=== PATIENT | female | born 1980 | race African-American/Black ===

== ENCOUNTER 2016-11-18 00:37 | Emergency (ER) | payer OTHER, MEDICAID ==
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
[2016-11-18] MEDS ORDERED: OXYCODONE-ACETAMINOPHEN 5-325 MG TABLET PO ONE (05:05)
[2016-11-18] MEDS ORDERED: ONDANSETRON 4 MG TAB.RAPDIS PO ONE (05:05)
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
[2016-11-18 06:49] VITALS: BP 106/65
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
== END 2016-11-18 07:01 | disposition home or self-care (01) ==
LOC: ER 00:37
DX: S16.1XXA Strain of muscle, fascia and tendon at neck level, initial encounter (principal); S39.012A Strain of muscle, fascia and tendon of lower back, initial encounter; V49.40XA Driver injured in collision with unspecified motor vehicles in traffic accident, initial encounter; R51 Headache; M54.2 Cervicalgia; F17.200 Nicotine dependence, unspecified, uncomplicated
CPT/HCPCS: 99284; 70450; 71250; 72125; S0119

== ENCOUNTER → 2016-11-20 | Outpatient (CLI) | payer OTHER, MEDICAID | LOC: LAB 17:30 | PROVIDERS: ATTEND Physician Assistant | DX: K13.70 Unspecified lesions of oral mucosa (principal) | CPT/HCPCS: 87250 ==

== ENCOUNTER 2016-12-06 21:46 | Emergency (ER) | payer MEDICAID, OTHER | END 2016-12-07 00:22 | disposition left against medical advice (07) | LOC: ER 21:46 | DX: Z53.21 Procedure and treatment not carried out due to patient leaving prior to being seen by health care provider (principal) ==

== ENCOUNTER 2017-01-08 13:02 | Emergency (ER) | payer MEDICAID ==
[2017-01-08 13:08] VITALS: BP 133/80
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
[2017-01-08] MEDS ORDERED: PHENAZOPYRIDINE HCL 200 MG TABLET PO ONE (14:51)
[2017-01-08 15:01] LABS: ABSOLUTE BASOPHILS # (AUTO) 0.1 10^3/uL (0.0-0.2); ABSOLUTE EOSINOPHILS # (AUTO) 0.3 10^3/uL (0.0-0.6); ABSOLUTE LYMPHOCYTES (AUTO) 3.4 10^3/uL (0.5-4.7); ABSOLUTE MONOCYTES (AUTO) 0.5 10^3/uL (0.1-1.4); ABSOLUTE NEUT (AUTO) 3.8 10^3/uL (1.7-8.2); BASOPHILS % (AUTO) 1.1 % (0-2); EOSINOPHILS % (AUTO) 3.4 % (0-6); HEMATOCRIT 39.9 % (36.0-47.0); HEMOGLOBIN 13.4 g/dL (12.0-15.5); HGB HCT DIFFERENCE 0.3; LYMPHOCYTES % (AUTO) 41.8 % (13-45); MEAN CORPUSCULAR HEMOGLOBIN 28.6 pg (27.0-33.4); MEAN CORPUSCULAR HGB CONC 33.5 g/dL (32.0-36.0); MEAN CORPUSCULAR VOLUME 85 fl (80-97); MONOCYTES % (AUTO) 6.1 % (3-13); RED BLOOD COUNT 4.67 10^6/uL (3.72-5.28); RED CELL DISTRIBUTION WIDTH 14.3 % (11.5-14.0); SEGMENTED NEUTROPHILS % (AUTO) 47.6 % (42-78); WHITE BLOOD COUNT 8.1 10^3/uL (4.0-10.5)
[2017-01-08 15:02] LABS: APPEARANCE,URINE SLIGHTLY-CLOUDY; BILIRUBIN,URINE NEGATIVE (NEGATIVE); GLUCOSE, URINE NEGATIVE (NEGATIVE); KETONES,URINE NEGATIVE (NEGATIVE); URINE SPECIFIC GRAVITY 1.033
[2017-01-08 15:03] LABS: LEUKOCYTE ESTERASE,URINE MODERATE (NEGATIVE); NITRITE,URINE NEGATIVE (NEGATIVE); PROTEIN,URINE NEGATIVE (NEGATIVE)
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
[2017-01-08 15:15] LABS: ALANINE AMINOTRANSFERASE 27 U/L (9-52); ALKALINE PHOSPHATASE 108 U/L (38-126); ANION GAP 11 (5-19); ASPARTATE AMINO TRANSFERASE 20 U/L (14-36); BILIRUBIN,DIRECT 0.3 mg/dL (0.0-0.4); BILIRUBIN,TOTAL 0.4 mg/dL (0.2-1.3); BLOOD UREA NITROGEN 11 mg/dL (7-20); CALCIUM 9.4 mg/dL (8.4-10.2); CARBON DIOXIDE 26 mmol/L (22-30); CHLORIDE 102 mmol/L (98-107); CREATININE RESULT 0.78 mg/dL (0.52-1.25); GLUCOSE 98 mg/dL (75-110); POTASSIUM 4.2 mmol/L (3.6-5.0); SODIUM 139.1 mmol/L (137-145); TOTAL PROTEIN 7.5 g/dL (6.3-8.2)
[2017-01-08] MEDS ORDERED: MINERAL OIL 30 ML UDCUP PR ONE (15:25)
[2017-01-08 16:28] LABS: CHLAM PCR NOT DETECTED (NOT DETECT)
[2017-01-08] MEDS ORDERED: CEPHALEXIN 500 MG CAPSULE PO ONE (16:52)
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
== END 2017-01-08 17:10 | disposition home or self-care (01) ==
LOC: ER 13:02
DX: K59.09 Other constipation (principal); N39.0 Urinary tract infection, site not specified; R10.9 Unspecified abdominal pain; F17.200 Nicotine dependence, unspecified, uncomplicated; Z98.51 Tubal ligation status
CPT/HCPCS: 99283; 36415; 84703; 85025; 80053; 81001; 87491; 87591; 74022; J3490 ×2

== ENCOUNTER 2017-02-08 23:42 | Emergency (ER) | payer MEDICAID ==
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
--- NOTE | 2017-02-09 01:09 | ER Document Report ---
Doctor's Note Notes: 02/09/17 01:09 Patient presents after apparently being found unresponsive in a [employer]. She was administered 2 mg of intranasal naloxone with resolution of her unresponsive presentation. She arrives combative and aggressive with [employer]. She immediately refuses any care from this provider. States that she does not want any medical care, does not want to be assessed, refuses a medical screening exam. I did attempt to engage the patient in a conversation regarding her apparent narcotic overdose and the risks for that narcotic to remain on board long after Narcan has gone away. Patient did not wish to engage in this conversation only stating repeatedly "that is fine I do not want to be here I am going to leave and call my trial lawyer". Although socially inappropriate and combative patient does have capacity. I have no grounds to hold her involuntarily. She will leave AGAINST MEDICAL ADVICE
== END 2017-02-09 | disposition left against medical advice (07) ==
LOC: ER 23:42
DX: T40.604A Poisoning by unspecified narcotics, undetermined, initial encounter (principal); R40.4 Transient alteration of awareness; X58.XXXA Exposure to other specified factors, initial encounter; Y92.512 Supermarket, store or market as the place of occurrence of the external cause; Z98.51 Tubal ligation status
CPT/HCPCS: 99285

== ENCOUNTER 2017-02-09 00:21 | Emergency (ER) | payer MEDICAID ==
[2017-02-09] MEDS ORDERED: HALOPERIDOL LACTATE INJ 5 MG/1 ML VIAL IV ONE (00:37)
[2017-02-09] MEDS ORDERED: NORMAL SALINE 1000 ML 1,000 ML IV ONE (00:37)
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
[2017-02-09] MEDS ORDERED: LORAZEPAM INJ 2 MG/1 ML VIAL IV ONE (01:06)
[2017-02-09] MEDS ORDERED: VERAPAMIL HCL INJ/PF 5 MG/2 ML SDV IV ONE (01:11)
[2017-02-09 01:40] LABS: HEMATOCRIT 38.5 % (36.0-47.0); HEMOGLOBIN 12.7 g/dL (12.0-15.5); HGB HCT DIFFERENCE -0.4; MEAN CORPUSCULAR HEMOGLOBIN 28.6 pg (27.0-33.4); MEAN CORPUSCULAR HGB CONC 32.9 g/dL (32.0-36.0); MEAN CORPUSCULAR VOLUME 87 fl (80-97); RED BLOOD COUNT 4.44 10^6/uL (3.72-5.28); RED CELL DISTRIBUTION WIDTH 15.7 % (11.5-14.0); WHITE BLOOD COUNT 6.9 10^3/uL (4.0-10.5)
[2017-02-09 01:50] LABS: ALANINE AMINOTRANSFERASE 32 U/L (9-52); ALBUMIN 3.6 g/dL (3.5-5.0); ALCOHOL 86 mg/dL (NONE DETECTED); ALKALINE PHOSPHATASE 109 U/L (38-126); ANION GAP 14 (5-19); ASPARTATE AMINO TRANSFERASE 18 U/L (14-36); BILIRUBIN,DIRECT 0.4 mg/dL (0.0-0.4); BILIRUBIN,TOTAL 0.5 mg/dL (0.2-1.3); BLOOD UREA NITROGEN 10 mg/dL (7-20); CARBON DIOXIDE 20 mmol/L (22-30); CHLORIDE 112 mmol/L (98-107); CREATININE RESULT 0.67 mg/dL (0.52-1.25); GLUCOSE 86 mg/dL (75-110); POTASSIUM 3.6 mmol/L (3.6-5.0); SODIUM 145.5 mmol/L (137-145); TOTAL PROTEIN 6.7 g/dL (6.3-8.2)
[2017-02-09 02:00] LABS: APPEARANCE,URINE CLEAR; BILIRUBIN,URINE NEGATIVE (NEGATIVE); GLUCOSE, URINE NEGATIVE (NEGATIVE); KETONES,URINE NEGATIVE (NEGATIVE); LEUKOCYTE ESTERASE,URINE NEGATIVE (NEGATIVE); NITRITE,URINE NEGATIVE (NEGATIVE); PROTEIN,URINE NEGATIVE (NEGATIVE); URINE SPECIFIC GRAVITY 1.001; UROBILINOGEN,URINE NEGATIVE mg/dL (<2.0)
[2017-02-09 02:01] LABS: BASOPHILS % (MANUAL) 0 % (0-2); EOSINOPHILS % (MANUAL) 3 % (0-6); LYMPHOCYTES % (MANUAL) 53 % (13-45); TOTAL CELLS COUNTED 100
[2017-02-09 02:07] LABS: ANISOCYTOSIS SLIGHT; POIKILOCYTOSIS SLIGHT
[2017-02-09 02:08] LABS: BURR CELLS SLIGHT; OVALOCYTES 1+; TARGET CELLS SLIGHT
[2017-02-09 02:56] LABS: URINE BARBITURATES SCREEN NEGATIVE; URINE METHADONE SCREEN NEGATIVE; URINE OPIATES LOW NEGATIVE; URINE PHENCYCLIDINE SCREEN NEGATIVE
--- NOTE | 2017-02-09 04:14 | RADIOLOGY REPORT (SQ) ---
EXAM DESCRIPTION: CT HEAD WITHOUT COMPLETED DATE/TIME: 02/09/2017 3:36 am REASON FOR STUDY: ams COMPARISON: 11/18/2016. TECHNIQUE: Axial images acquired through the brain without intravenous contrast. Images reviewed wi th bone, brain and subdural windows. Images stored on PACS. All CT scanners at this facility use dose modulation, iterative reconstruction, and/or weight based d osing when appropriate to reduce radiation dose to as low as reasonably achievable (ALARA). [facility]: Dose Right [facility]: CareDose [facility]: Dose Right [facility]: Teradose 4D [facility]: [email or web address] RADIATION DOSE: Up-to-date CT equipment and radiation dose reduction techniques were employed. CTDIv ol: 55.2 - 55.3 mGy. DLP: 2080 mGy-cm. mGy. LIMITATIONS: None. FINDINGS: VENTRICLES: Normal size and contour. CEREBRUM: No masses. No hemorrhage. No midline shift. Normal ocampo/white matter differentiation. N o evidence for acute infarction. CEREBELLUM: No masses. No hemorrhage. No alteration of density. No evidence for acute infarction. EXTRAAXIAL SPACES: No fluid collections. No masses. ORBITS AND GLOBE: No intra- or extraconal masses. Normal contour of globe without masses. CALVARIUM: No fracture. PARANASAL SINUSES: No fluid or mucosal thickening. SOFT TISSUES: No mass or hematoma. OTHER: No other significant finding. IMPRESSION: NORMAL BRAIN CT WITHOUT CONTRAST. TECHNICAL DOCUMENTATION: JOB ID: [id number] Quality ID # [id number]: Final reports with documentation of one or more dose reduction techniques (e.g., Au tomated exposure control, adjustment of the mA and/or kV according to patient size, use of iterative reconstruction technique) 2010 [employer]- All Rights Reserved
--- NOTE | 2017-02-09 06:27 | ER Document Report ---
Doctor's Note Notes: 02/09/17 06:26 Patient is now awake and alert. I did try to stand and walk the patient. She is unfortunately unable to walk very well on her own. She still staggering and looks as if she will follow-up frequent her walk on her own. Informed patient that I suggest that she lays down and waits a little bit longer until she is able walk on her own or until she can get a ride home. Patient agrees and did plate the back down on the bed. Patient will be reassessed later on. Dictation of this chart was performed using voice recognition software; therefore, there may be some unintended grammatical errors.
[2017-02-09 08:06] VITALS: BP 124/71
--- NOTE | 2017-02-09 08:18 | ER Document Report ---
ED General - General Chief Complaint: Overdose Stated Complaint: POSSIBLE OVERDOSE Time Seen by Provider: 02/09/17 00:36 TRAVEL OUTSIDE OF THE [place] IN LAST 30 DAYS: No - Related Data Allergies/Adverse Reactions: No Known Allergies Allergy (Verified 02/09/17 00:46) Past Medical History - Social History Smoking Status: Unknown if Ever Smoked Family History: Reviewed & Not Pertinent Pulmonary Medical History: Reports: Hx Bronchitis Renal/ Medical History: Denies: Hx Peritoneal Dialysis Musculoskeltal Medical History: Reports Hx Musculoskeletal Trauma Psychiatric Medical History: Reports: Hx Anxiety, Hx Depression Past Surgical History: Reports: Hx Bowel Surgery, Hx Dilation and Curettage, Hx Gynecologic Surgery - ectopic L tube, Hx Tubal Ligation - Immunizations Immunizations up to date: No Hx Diphtheria, Pertussis, Tetanus Vaccination: Yes Hx Pneumococcal Vaccination: 06/21/12 Physical Exam - Vital signs Vitals: Pulse Ox 95 02/09/17 00:27 Course - Re-evaluation Re-evalutation: 02/09/17 08:17 Patient reevaluated at 8:15 AM. Alert and oriented 3, is amnestic to last night but she received a heavy dose of sedatives. Currently her neurologic exam is normal, she has no psychiatric emergency and is stable for discharge home. - Vital Signs Vital signs: Temp Pulse Resp BP Pulse Ox 99.6 F 17 124/71 97 02/09/17 06:01 02/09/17 08:01 02/09/17 08:01 02/09/17 08:01 - Laboratory Result Diagrams: 02/09/17 01:29 02/09/17 01:29 Laboratory results interpreted by me: 02/09/17 02/09/17 02/09/17 01:10 01:29 01:29 RDW 15.7 H Seg Neuts % (Manual) 40 L Lymphocytes % (Manual) 53 H Sodium 145.5 H Chloride 112 H Carbon Dioxide 20 L Urine Blood SMALL H Salicylates < 1.0 L Acetaminophen < 10 L Discharge - Discharge Clinical Impression: Alcohol abuse, Agitation Altered mental status Qualifiers: Altered mental status type: disorientation Qualified Code(s): R41.0 - Disorientation, unspecified Condition: Stable Additional Instructions: You were seen today for being confused, agitated and being found unresponsive in a [employer]. You were given a drug to reverse narcotics and became more responsive. Initially in the emergency department you did refuse care but were unable to care for yourself when trying to leave the hospital, falling in the parking lot. Unfortunately, you were unable to make appropriate decisions for yourself at that time. Your labs, CT of the head, and EKG are all normal. Your alcohol level was above the legal level for intoxication. Please follow- up with your primary care doctor regarding today's episode. Seek help for substance abuse if you think this is an issue for you.
--- NOTE | 2017-02-09 09:28 | EKG REPORT ---
SEVERITY:- NORMAL ECG - SINUS RHYTHM : Confirmed by: Sharmaine Mcneil 09-Feb-2017 09:27:27
== END 2017-02-09 08:59 | disposition home or self-care (01) ==
LOC: ER 00:21
DX: F10.10 Alcohol abuse, uncomplicated (principal); R45.1 Restlessness and agitation; R41.0 Disorientation, unspecified
CPT/HCPCS: 93005; 99291; 96361; 51702; 96374; 96375; 36415; 80307 ×4; 84703; 85025; 80053; 81001; 70450; 93010; J1630; J2060; J7030

== ENCOUNTER 2017-03-17 10:59 | Emergency (ER) | payer MEDICAID, OTHER ==
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
[2017-03-17 12:06] VITALS: BP 129/90
== END 2017-03-17 12:30 | disposition left against medical advice (07) ==
LOC: ER 10:59
DX: S16.1XXA Strain of muscle, fascia and tendon at neck level, initial encounter (principal); V43.52XA Car driver injured in collision with other type car in traffic accident, initial encounter; M54.2 Cervicalgia; R00.0 Tachycardia, unspecified; J45.909 Unspecified asthma, uncomplicated; F17.200 Nicotine dependence, unspecified, uncomplicated; Z53.29 Procedure and treatment not carried out because of patient's decision for other reasons
CPT/HCPCS: 70450; 71010; 72125; 99284

== ENCOUNTER 2017-03-18 05:35 | Emergency (ER) | payer MEDICAID, OTHER ==
[2017-03-18] MEDS ORDERED: KETOROLAC TROMETHAMINE 10 MG TABLET PO ONE (06:21)
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
[2017-03-18 07:48] VITALS: BP 104/83
== END 2017-03-18 08:15 | disposition home or self-care (01) ==
LOC: ER 05:35
DX: S16.1XXD Strain of muscle, fascia and tendon at neck level, subsequent encounter (principal); T50.991A Poisoning by other drugs, medicaments and biological substances, accidental (unintentional), initial encounter; J18.9 Pneumonia, unspecified organism; M79.1 Myalgia; F17.210 Nicotine dependence, cigarettes, uncomplicated; V89.2XXD Person injured in unspecified motor-vehicle accident, traffic, subsequent encounter
CPT/HCPCS: 99283; 71020; J3490

== ENCOUNTER 2017-04-12 11:47 | Emergency (ER) | payer MEDICAID ==
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
--- NOTE | 2017-04-12 14:54 | RADIOLOGY REPORT (SQ) ---
EXAM DESCRIPTION: U/S THYROID/SFT TISS HD NECK COMPLETED DATE/TIME: 04/12/2017 2:08 pm REASON FOR STUDY: tender nodule L supraclavicular area COMPARISON: CT cervical spine 03/17/2017, 11/18/2016 TECHNIQUE: Dynamic and static ocampo-scale images acquired of the left supraclavicular region. Selecte d additional color/power Doppler images recorded. All images stored to PACS. LIMITATIONS: None. FINDINGS: Patient indicates palpable abnormality over the left supraclavicular region. In the area indicated by the patient, there are 3 small supraclavicular lymph nodes, 8 x 6 mm, 8 x 4 mm, and 7 x 4 mm in size. These are similar compared to CT cervical spine 11/18/2016. IMPRESSION: Small left supraclavicular lymph nodes TECHNICAL DOCUMENTATION: JOB ID: [id number] [employer]- All Rights Reserved
[2017-04-12 15:12] VITALS: BP 118/74
== END 2017-04-12 15:12 | disposition home or self-care (01) ==
LOC: ER 11:47
DX: R59.1 Generalized enlarged lymph nodes (principal); J02.9 Acute pharyngitis, unspecified; R50.9 Fever, unspecified; F17.200 Nicotine dependence, unspecified, uncomplicated; Z98.51 Tubal ligation status
CPT/HCPCS: 76536; 87070; 87880; 99284

== ENCOUNTER → 2017-07-13 | Day surgery (SDC) | payer MEDICAID ==
[~2017-07-13] MED LIST: FENTANYL CITRATE INJ/PF 100 MCG/2 ML AMPUL ONE; MIDAZOLAM 2 MG/2 ML INJ ONE
--- NOTE | 2017-07-13 16:31 | RADIOLOGY REPORT (SQ) ---
EXAM DESCRIPTION: U/S BIOPSY SUPERFIC LYMPH NODE IV conscious sedation COMPLETED DATE/TIME: 07/13/2017 2:25 pm REASON FOR STUDY: ENLARGED LYMPH NODES, UNSPECIFIED (R59.9) R59.9 ENLARGED LYMPH NODES, UNSPECIFIED COMPARISON: CT cervical spine without contrast 12/26/2014, 11/18/2016, 03/17/2017 CT chest 11/18/2016 Neck soft tissue ultrasound 04/12/2017 TECHNIQUE: Dynamic and static grayscale images acquired of the localized site of clinical concern an d recorded on PACS. Additional selected color Doppler and spectral images recorded. SITE OF CONCERN: Left supraclavicular region palpable node LIMITATIONS: None. FINDINGS: Ultrasound-guided left supraclavicular lymph node biopsy was discussed with the patient an paramjit she agreed to proceed. At my direction, under continuous physiologic monitoring by radiology nursing personnel, patient rece ived 1.5 mg of IV Versed at and 50 mcg of IV fentanyl for conscious sedation. No complications post sedation. Total sedation time 15 minutes. Total patient observation time 25 minutes. After sterile skin prep with ChloraPrep and local anesthesia with 3 mL of 1% lidocaine, a coaxial 14/ 15 gauge needle was used to obtain 3 cores of tissue from the left supraclavicular 9 x 5 mm lymph nod e. Specimens were received by Sanjana from cytology. Under sonographic guidance, a ribbon clip was placed within the biopsied 9 x 5 mm left supraclavicula r lymph node. There were no immediate complications post biopsy. Pathology is pending at the time of dictation. IMPRESSION: Ultrasound-guided left supraclavicular lymph node biopsy as above. Pathology pending. IV conscious sedation. No complications from sedation. TECHNICAL DOCUMENTATION: JOB ID: [id number] [email or web address]- All Rights Reserved
== END ==
LOC: RAD 12:33
PROVIDERS: ATTEND Internal Medicine Medical Oncology
PROC: 07B23ZX Excision of Left Neck Lymphatic, Percutaneous Approach, Diagnostic (ICD-10-PCS; principal; 2017-07-13)
DX: R59.9 Enlarged lymph nodes, unspecified (principal)
CPT/HCPCS: 88185 ×15; 88184; 88233; 88262; 38505; J2250; J3010; 88305

== ENCOUNTER 2017-08-16 03:05 | Emergency (ER) | payer MEDICAID ==
[2017-08-16] MEDS ORDERED: NORMAL SALINE 1000 ML 1,000 ML IV ONE (03:51)
[2017-08-16] MEDS ORDERED: METOCLOPRAMIDE HCL INJ/PF 10 MG/2 ML SDV IV ONE (03:51)
[2017-08-16] MEDS ORDERED: DIPHENHYDRAMINE HCL 50 MG/ML VIAL IV ONE ×2 (03:51→04:23)
[2017-08-16] MEDS ORDERED: KETOROLAC TROMETHAMINE INJ/PF 30 MG/1 ML SDV IV ONE (03:51)
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
[2017-08-16] MEDS ORDERED: METOCLOPRAMIDE HCL 10 MG TABLET PO ONE (04:23)
[2017-08-16] MEDS ORDERED: HYDROMORPHONE HCL INJ/PF 2 MG/ML AMPULE IM ONE (04:23)
[2017-08-16] MEDS ORDERED: DIPHENHYDRAMINE HCL 50 MG/ML VIAL IM ONE (04:27)
[2017-08-16] MEDS ORDERED: PROMETHAZINE HCL INJ 25 MG/1 ML VIAL IM ONE (05:41)
[2017-08-16] MEDS ORDERED: DEXAMETHASONE SOD PHOS INJ 10 MG/1 ML VIAL IM ONE (05:42)
[2017-08-16] MEDS ORDERED: TETRACAINE HCL 0.5% OPH SOLN 2 ML OD ONE (05:43)
[2017-08-16] MEDS ORDERED: TETRACAINE HCL 0.5% OPH SOLN 2 ML ONE (05:46)
[2017-08-16 06:23] VITALS: BP 132/82
== END 2017-08-16 06:22 | disposition home or self-care (01) ==
LOC: ER 03:05
DX: H53.8 Other visual disturbances (principal); R51 Headache; R11.0 Nausea; F41.9 Anxiety disorder, unspecified; Z79.891 Long term (current) use of opiate analgesic; Z79.899 Other long term (current) drug therapy; F17.200 Nicotine dependence, unspecified, uncomplicated; J45.909 Unspecified asthma, uncomplicated
CPT/HCPCS: 99283; 96372; J1200; J3490 ×2; J1170; J2550; J1100

== ENCOUNTER 2017-10-28 20:20 | Emergency (ER) | payer MEDICAID, OTHER ==
[2017-10-28] MEDS ORDERED: ACETAMINOPHEN 325 MG TABLET PO ONE (20:24)
[2017-10-28 20:26] VITALS: BP 120/67
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
--- NOTE | 2017-10-28 21:46 | RADIOLOGY REPORT (SQ) ---
EXAM DESCRIPTION: ANKLE RIGHT COMPLETE COMPLETED DATE/TIME: 10/28/2017 9:22 pm REASON FOR STUDY: Pain s/p injury COMPARISON: None. NUMBER OF VIEWS: Three views. TECHNIQUE: AP, lateral, and oblique radiographic images acquired of the right ankle. LIMITATIONS: None. FINDINGS: MINERALIZATION: Normal. BONES: No acute fracture or dislocation. No worrisome bone lesions. JOINTS: No effusions. SOFT TISSUES: No soft tissue swelling. No foreign body. OTHER: No other significant finding. IMPRESSION: NEGATIVE STUDY OF THE RIGHT ANKLE. NO RADIOGRAPHIC EVIDENCE OF ACUTE INJURY. TECHNICAL DOCUMENTATION: JOB ID: [id number] [employer]- All Rights Reserved Reading location - IP/workstation name: [email or web address]
--- NOTE | 2017-10-28 21:47 | RADIOLOGY REPORT (SQ) ---
EXAM DESCRIPTION: FOOT RIGHT COMPLETE COMPLETED DATE/TIME: 10/28/2017 9:22 pm REASON FOR STUDY: Pain s/p injury COMPARISON: None. NUMBER OF VIEWS: Three views. TECHNIQUE: AP, lateral and oblique radiographic images acquired of the right foot. LIMITATIONS: None. FINDINGS: MINERALIZATION: Normal. BONES: No acute fracture or dislocation. No worrisome bone lesions. JOINTS: No effusions. SOFT TISSUES: No soft tissue swelling. No foreign body. OTHER: No other significant finding. IMPRESSION: NEGATIVE STUDY OF THE RIGHT FOOT. NO RADIOGRAPHIC EVIDENCE OF ACUTE INJURY. TECHNICAL DOCUMENTATION: JOB ID: [id number] [employer]- All Rights Reserved Reading location - IP/workstation name: [email or web address]
== END 2017-10-28 22:23 | disposition home or self-care (01) ==
LOC: ER 20:20
DX: S93.401A Sprain of unspecified ligament of right ankle, initial encounter (principal); S93.601A Unspecified sprain of right foot, initial encounter; W20.8XXA Other cause of strike by thrown, projected or falling object, initial encounter; Y92.512 Supermarket, store or market as the place of occurrence of the external cause
CPT/HCPCS: 99283; 73610; 73630; J3490

== ENCOUNTER 2018-03-04 16:58 | Emergency (ER) | payer MEDICAID ==
[2018-03-04 17:09] VITALS: BP 114/72
[2018-03-04] MEDS ORDERED: LIDOCAINE 5% (700 MG) TRANSDERMAL ADH..PATCH TP ONE (18:17)
[2018-03-04] MEDS ORDERED: KETOROLAC TROMETHAMINE 60 MG/2 ML SDV IM ONE (18:17)
[2018-03-04] MEDS ORDERED: GABAPENTIN 300 MG CAPSULE PO ONE (18:17)
[2018-03-04] MEDS ORDERED: DEXAMETHASONE SOD PHOS INJ 10 MG/1 ML VIAL IM ONE (18:17)
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
== END 2018-03-04 19:09 | disposition home or self-care (01) ==
LOC: ER 16:58
DX: G89.29 Other chronic pain (principal); M54.89 Other dorsalgia; M54.5 Low back pain; Z65.5 Exposure to disaster, war and other hostilities; J45.909 Unspecified asthma, uncomplicated
CPT/HCPCS: 96372; 99283

== ENCOUNTER 2018-04-04 12:30 | Emergency (ER) | payer MEDICAID ==
[2018-04-04] MEDS ORDERED: METHYLPREDNISOLONE INJ 125 MG/2 ML SDV IM ONE (12:55)
[2018-04-04] MEDS ORDERED: IPRATROPIUM/ALBUTEROL 0.5-2.5 MG/3 ML AMPUL NEB ONE ×2 (12:55→13:56)
--- NOTE | 2018-04-04 12:58 | ER Document Report ---
ED General - General Chief Complaint: Cold Symptoms Stated Complaint: COUGH Time Seen by Provider: 04/04/18 12:45 Mode of Arrival: Ambulatory Information source: Patient Notes: 37-year-old female presents emergency department with a 4-week history of productive cough. Patient states that she has a history of chronic bronchitis. Patient states that she is followed up with her primary care physician twice. Patient states that she was prescribed a Z-Herson and an inhaler. Patient states that she went back to the doctor a few weeks later and was prescribed levofloxacin, Tessalon Perles, nebulizer treatments. Patient states that she is not feeling any better. Patient states that her entire household has similar symptoms. Patient is having associated rhinorrhea with a productive cough. Patient does smoke. She denies chest pain, shortness of breath. I have greeted and performed a rapid initial assessment of this patient. A comprehensive ED assessment and evaluation of the patient, analysis of test results and completion of the medical decision making process will be conducted by additional ED providers. PHYSICAL EXAMINATION: GENERAL: Well-appearing, well-nourished and in no acute distress. HEAD: Atraumatic, normocephalic. EYES: Pupils equal round extraocular movements intact, conjunctiva are normal. ENT: Nares patent NECK: Normal range of motion LUNGS: No respiratory distress. mild wheezing. Musculoskeletal: Normal range of motion NEUROLOGICAL: Normal speech, normal gait. PSYCH: Normal mood, normal affect. SKIN: Warm, Dry, normal turgor, no rashes or lesions noted. TRAVEL OUTSIDE OF THE [place] IN LAST 30 DAYS: No - HPI Onset: Other - 4 weeks Onset/Duration: Gradual Quality of pain: No pain Associated symptoms: None Exacerbated by: Denies Relieved by: Denies Similar symptoms previously: Yes Recently seen / treated by doctor: Yes - Related Data Allergies/Adverse Reactions: No Known Allergies Allergy (Verified 04/04/18 12:33) Past Medical History - Social History Smoking Status: Current Every Day Smoker Chew tobacco use (# tins/day): No Frequency of alcohol use: None Drug Abuse: None Family History: Reviewed & Not Pertinent Patient has suicidal ideation: No Patient has homicidal ideation: No Pulmonary Medical History: Reports: Hx Asthma, Hx Bronchitis Renal/ Medical History: Denies: Hx Peritoneal Dialysis Musculoskeletal Medical History: Reports Hx Musculoskeletal Trauma Psychiatric Medical History: Reports: Hx Anxiety, Hx Depression Past Surgical History: Reports: Hx Bowel Surgery, Hx Dilation and Curettage, Hx Gynecologic Surgery - ectopic L tube, Hx Tubal Ligation - Immunizations Immunizations up to date: No Hx Diphtheria, Pertussis, Tetanus Vaccination: Yes Hx Pneumococcal Vaccination: 06/21/12 Review of Systems - Review of Systems Constitutional: No symptoms reported EENT: Nose congestion, Nose discharge Cardiovascular: No symptoms reported Respiratory: Cough, Wheezing Gastrointestinal: No symptoms reported Genitourinary: No symptoms reported Female Genitourinary: No symptoms reported Musculoskeletal: No symptoms reported Skin: No symptoms reported Hematologic/Lymphatic: No symptoms reported Neurological/Psychological: No symptoms reported -: Yes All other systems reviewed and negative Physical Exam - Vital signs Vitals: Temp Pulse Resp BP Pulse Ox 98.5 F 85 18 123/74 99 04/04/18 12:38 04/04/18 12:38 04/04/18 12:38 04/04/18 12:38 04/04/18 12:38 Course - Vital Signs Vital signs: Temp Pulse Resp BP Pulse Ox 98.5 F 85 18 123/74 99 04/04/18 12:38 04/04/18 12:38 04/04/18 12:38 04/04/18 12:38 04/04/18 12:38
--- NOTE | 2018-04-04 13:36 | RADIOLOGY REPORT (SQ) ---
EXAM DESCRIPTION: CHEST 2 VIEWS COMPLETED DATE/TIME: 04/04/2018 1:25 pm REASON FOR STUDY: cough COMPARISON: 03/18/2017 EXAM PARAMETERS: NUMBER OF VIEWS: two views TECHNIQUE: Digital Frontal and Lateral radiographic views of the chest acquired. RADIATION DOSE: NA LIMITATIONS: none FINDINGS: LUNGS AND PLEURA: No opacities, masses or pneumothorax. No pleural effusion. MEDIASTINUM AND HILAR STRUCTURES: No masses or contour abnormalities. HEART AND VASCULAR STRUCTURES: Heart normal size. No evidence for failure. BONES: No acute findings. HARDWARE: None in the chest. OTHER: No other significant finding. IMPRESSION: NO ACUTE RADIOGRAPHIC FINDING IN THE CHEST. TECHNICAL DOCUMENTATION: JOB ID: [id number] [employer]- All Rights Reserved Reading location - IP/workstation name: [email or web address]
[2018-04-04 13:54] LABS: A TYPE INFLUENZA AG NEGATIVE (NEGATIVE); B INFLUENZA AG NEGATIVE (NEGATIVE)
--- NOTE | 2018-04-04 15:15 | ER Document Report ---
ED General - General Chief Complaint: Cold Symptoms Stated Complaint: COUGH Time Seen by Provider: 04/04/18 12:45 Mode of Arrival: Ambulatory Information source: Patient Notes: This is a 37-year-old female with COPD who still smokes presents to the emergency room with cough, shortness of breath, wheezing. TRAVEL OUTSIDE OF THE [place] IN LAST 30 DAYS: No - HPI Onset: Last week Onset/Duration: Gradual Quality of pain: Dull Severity: Moderate Pain Level: 2 Associated symptoms: Shortness of breath. denies: Chest pain, Fever Exacerbated by: Walking, Coughing Relieved by: Denies Similar symptoms previously: Yes Recently seen / treated by doctor: Yes - Related Data Allergies/Adverse Reactions: No Known Allergies Allergy (Verified 04/04/18 12:33) Past Medical History - General Information source: Patient - Social History Smoking Status: Current Every Day Smoker Cigarette use (# per day): Yes - 1 pack/day Chew tobacco use (# tins/day): No Frequency of alcohol use: None Drug Abuse: None Lives with: Family Family History: Reviewed & Not Pertinent Patient has suicidal ideation: No Patient has homicidal ideation: No Pulmonary Medical History: Reports: Hx Asthma, Hx Bronchitis Renal/ Medical History: Denies: Hx Peritoneal Dialysis Musculoskeletal Medical History: Reports Hx Musculoskeletal Trauma Psychiatric Medical History: Reports: Hx Anxiety, Hx Depression Past Surgical History: Reports: Hx Bowel Surgery, Hx Dilation and Curettage, Hx Gynecologic Surgery - ectopic L tube, Hx Tubal Ligation - Immunizations Immunizations up to date: No Hx Diphtheria, Pertussis, Tetanus Vaccination: Yes Hx Pneumococcal Vaccination: 06/21/12 Review of Systems - Review of Systems Constitutional: denies: Chills, Fever EENT: No symptoms reported Cardiovascular: No symptoms reported Respiratory: See HPI, Cough, Short of breath, Wheezing Gastrointestinal: No symptoms reported Genitourinary: No symptoms reported Female Genitourinary: No symptoms reported Musculoskeletal: No symptoms reported Skin: No symptoms reported Hematologic/Lymphatic: No symptoms reported Neurological/Psychological: No symptoms reported Physical Exam - Vital signs Vitals: Temp Pulse Resp BP Pulse Ox 98.5 F 85 18 123/74 99 04/04/18 12:38 04/04/18 12:38 04/04/18 12:38 04/04/18 12:38 04/04/18 12:38 Notes: Physical exam: GENERAL: Patient is alert and oriented x3, wheezing and coughing on exam HEAD: Atraumatic, normocephalic. EYES: Pupils equal round and reactive to light, extraocular movements intact, sclera anicteric, conjunctiva are normal. ENT: TMs normal, nares patent, oropharynx clear without exudates. Moist mucous membranes. NECK: Normal range of motion, supple without obvious mass or JVD. LUNGS: Wheezing bilaterally HEART: Regular rate and rhythm without murmurs, rubs or gallops. ABDOMEN: Soft, normoactive bowel sounds. No tenderness to palpation. No guarding, no rebound. No masses appreciated. EXTREMITIES: Normal range of motion, no pitting or edema. No clubbing or cyanosis. NEUROLOGICAL: Cranial nerves II through XII grossly intact. Normal speech, moving all extremities. PSYCH: Normal mood, normal affect. SKIN: Warm, Dry, normal turgor, no rashes or lesions noted. Course - Re-evaluation Re-evalutation: 04/04/18 20:25 Patient was breathing better with less wheezing on exam. I did discuss with her about stopping smoking as well as vaping. I have advised her to follow-up with her doctor. 04/04/18 20:25 - Vital Signs Vital signs: Temp Pulse Resp BP Pulse Ox 98.6 F 85 18 113/91 H 100 04/04/18 15:35 04/04/18 15:35 04/04/18 12:38 04/04/18 15:35 04/04/18 15:35 - Diagnostic Test Radiology reviewed: Image reviewed, Reports reviewed - X-ray shows no pneumonia Discharge - Discharge Clinical Impression: COPD exacerbation Condition: Stable Disposition: HOME, SELF-CARE Additional Instructions: Chest x-ray showed no evidence of pneumonia. The flu studies were negative. Recommendations: As we discussed, I want you to take the Z-Herson. Stop the levofloxacin. Take the prednisone as prescribed. Take Rainier as needed. Add Robitussin [id number] cough syrup. I would attempt to stop all smoking (cigarettes as well as vapor). Follow-up with your primary care doctor. Return to the emergency room for worsening shortness of breath, cough or any concerns or getting worse. Prescriptions: Hydrocodone/Acetaminophen [Rainier 5-325 mg Tablet] 1 tab PO Q6HP PRN #14 tablet PRN Reason: Azithromycin [Zithromax 250 mg Tablet] 250 mg PO ASDIR PRN #6 tablet PRN Reason: Prednisone [Deltasone 20 mg Tablet] 3 tab PO DAILY 5 Days tablet
[2018-04-04 15:37] VITALS: BP 113/91
== END 2018-04-04 15:41 | disposition home or self-care (01) ==
LOC: ER 12:30
DX: J44.1 Chronic obstructive pulmonary disease with (acute) exacerbation (principal); F17.210 Nicotine dependence, cigarettes, uncomplicated; Z98.51 Tubal ligation status
CPT/HCPCS: 94640 ×2; 99283; 96372; 87804; 71046; J2930; J7620

== ENCOUNTER 2018-08-29 13:14 | Emergency (ER) | payer MEDICAID ==
[2018-08-29] MEDS ORDERED: KETOROLAC TROMETHAMINE 60 MG/2 ML SDV IM ONE (14:25)
[2018-08-29] MEDS ORDERED: DEXAMETHASONE SOD PHOS INJ 10 MG/1 ML VIAL IM ONE (14:25)
[2018-08-29] MEDS ORDERED: LIDOCAINE 5% (700 MG) TRANSDERMAL ADH..PATCH TP ONE (14:25)
--- NOTE | 2018-08-29 14:46 | ER Document Report ---
HPI - HPI Time Seen by Provider: 08/29/18 14:15 Pain Level: 5 Notes: Patient is a 37-year-old female with past medical history of seizures who reports complaint of low back pain after falling last night during a seizure. She states that she sees pain management for chronic back pain for degenerative disc disease. Patient reports this pain feels much different. Patient denies any bowel incontinence, urinary retention no saddle anesthesia. Patient reports the pain radiates across her entire lumbar spine as well as lumbar paraspinous muscles. Denies any radiation to her buttocks. - REPRODUCTIVE Reproductive: DENIES: : Past Medical History - General Information source: Patient - Social History Smoking Status: Current Every Day Smoker Family History: Reviewed & Not Pertinent Patient has suicidal ideation: No Patient has homicidal ideation: No Pulmonary Medical History: Reports: Hx Asthma, Hx Bronchitis Renal/ Medical History: Denies: Hx Peritoneal Dialysis Musculoskeletal Medical History: Reports Hx Musculoskeletal Trauma Psychiatric Medical History: Reports: Hx Anxiety, Hx Depression Past Surgical History: Reports: Hx Bowel Surgery, Hx Dilation and Curettage, Hx Gynecologic Surgery - ectopic L tube, Hx Tubal Ligation - Immunizations Immunizations up to date: No Hx Diphtheria, Pertussis, Tetanus Vaccination: Yes Hx Pneumococcal Vaccination: 06/21/12 Vertical Provider Document - CONSTITUTIONAL Notes: PHYSICAL EXAMINATION: GENERAL: Well-appearing, well-nourished and in no acute distress. HEAD: Atraumatic, normocephalic. EYES: Pupils equal round extraocular movements intact, conjunctiva are normal. ENT: Nares patent NECK: Normal range of motion LUNGS: No respiratory distress Musculoskeletal: Normal range of motion, tenderness to palpation to lumbar paraspinous muscles bilaterally. No vertebral tenderness, no step-off or deformity with palpation. NEUROLOGICAL: Normal speech, normal gait. PSYCH: Normal mood, normal affect. SKIN: Warm, Dry, normal turgor, no rashes or lesions noted. - INFECTION CONTROL TRAVEL OUTSIDE OF THE [place] IN LAST 30 DAYS: No Course - Re-evaluation Re-evalutation: 08/29/18 14:46 We will obtain L-spine x-rays due to possible trauma to the area from fall last night. Will administer IM Toradol, IM Decadron and lidocaine patch. 08/29/18 15:39 X-rays negative. Patient will be discharged home with prescription for Toradol and Flexeril. Patient instructed to follow-up with her primary care provider as well as her chronic pain medication physician. ED return precautions were discussed. - Vital Signs Vital signs: Temp Pulse Resp BP Pulse Ox 98.0 F 84 16 119/70 96 08/29/18 13:18 08/29/18 13:18 08/29/18 13:18 08/29/18 13:18 08/29/18 13:18 Discharge - Discharge Clinical Impression: Lumbar back pain Condition: Stable Disposition: HOME, SELF-CARE Instructions: Low Back Pain ([facility]) Additional Instructions: Your x-rays today were normal. This means there is nothing wrong with the bones in your lumbar spine. Please follow-up with your primary care provider as well as your pain management physician. A copy of your x-ray was included in your discharge summary today. Please take medications as prescribed. Do not take ibuprofen while taking the Toradol as they are in a similar class of medications. Prescriptions: Ketorolac Tromethamine [Toradol 10 mg Tablet] 10 mg PO Q6HP PRN #20 tablet PRN Reason: Cyclobenzaprine HCl [Flexeril 10 mg Tablet] 10 mg PO TID #15 tablet Forms: Return to Work
--- NOTE | 2018-08-29 15:31 | RADIOLOGY REPORT (SQ) ---
EXAM DESCRIPTION: L SPINE WHOLE COMPLETED DATE/TIME: 08/29/2018 3:23 pm REASON FOR STUDY: fall, lumbar back pain COMPARISON: 01/18/2015. NUMBER OF VIEWS: Five views including obliques. TECHNIQUE: AP, lateral, oblique, and sacral radiographic images acquired of the lumbar spine. LIMITATIONS: None. FINDINGS: MINERALIZATION: Normal. SEGMENTATION: Normal. No transitional anatomy. ALIGNMENT: Normal. VERTEBRAE: Maintained height. No fracture or worrisome bone lesion. DISCS: Preserved height. No significant osteophytes or end plate irregularity. POSTERIOR ELEMENTS: Pedicles and facets are intact. No pars defect or posterior arch defects. HARDWARE: None in the spine. PARASPINAL SOFT TISSUES: Normal. PELVIS: Intact as visualized. No fractures or worrisome bone lesions. SI joints intact. OTHER: No other significant finding. IMPRESSION: NORMAL 5 VIEW LUMBAR SPINE. TECHNICAL DOCUMENTATION: JOB ID: [id number] [employer]- All Rights Reserved Reading location - IP/workstation name: [email or web address]
[2018-08-29 15:50] VITALS: BP 126/78
== END 2018-08-29 15:50 | disposition home or self-care (01) ==
LOC: ER 13:14
DX: M54.5 Low back pain (principal); W19.XXXA Unspecified fall, initial encounter; G89.29 Other chronic pain; F17.200 Nicotine dependence, unspecified, uncomplicated; J45.909 Unspecified asthma, uncomplicated
CPT/HCPCS: 99283; 96372; 72110; J1885; J3490; J1100

== ENCOUNTER 2018-09-06 22:23 | Emergency (ER) | payer MEDICAID ==
[2018-09-06 22:35] VITALS: BP 113/69
== END 2018-09-07 05:21 | disposition left against medical advice (07) ==
LOC: ER 22:23
DX: Z53.21 Procedure and treatment not carried out due to patient leaving prior to being seen by health care provider (principal)

== ENCOUNTER → 2018-09-14 | Outpatient (CLI) | payer MEDICAID ==
--- NOTE | 2018-09-14 16:14 | RADIOLOGY REPORT (SQ) ---
EXAM DESCRIPTION: KNEE RIGHT 4 VIEWS COMPLETED DATE/TIME: 09/14/2018 4:01 pm REASON FOR STUDY: PAIN IN RT KNEE M25.561 PAIN IN RIGHT KNEE COMPARISON: None. NUMBER OF VIEWS: Four views. TECHNIQUE: AP, lateral, and both oblique radiographic images acquired of the right knee. LIMITATIONS: None. FINDINGS: MINERALIZATION: Normal. BONES: No acute fracture or dislocation. No worrisome bone lesions. JOINT: No effusion. SOFT TISSUES: No soft tissue swelling. No radio-opaque foreign body. OTHER: No other significant finding. IMPRESSION: NEGATIVE STUDY OF THE RIGHT KNEE. NO RADIOGRAPHIC EVIDENCE OF ACUTE INJURY. TECHNICAL DOCUMENTATION: JOB ID: [id number] [employer]- All Rights Reserved Reading location - IP/workstation name: [email or web address]
== END ==
LOC: OD 15:43
PROVIDERS: ATTEND Physician Assistant
DX: M25.561 Pain in right knee (principal)

== ENCOUNTER → 2018-11-07 | Outpatient (CLI) | payer MEDICAID | LOC: LC 00:11 | PROVIDERS: ATTEND Obstetrics & Gynecology Gynecology | DX: Z53.9 Procedure and treatment not carried out, unspecified reason (principal) ==

== ENCOUNTER 2018-12-26 19:06 | Emergency (ER) | payer MEDICAID ==
--- NOTE | 2018-12-26 20:32 | ER Document Report ---
ED Medical Screen (RME) - General Chief Complaint: Abdominal Pain Stated Complaint: POSSIBLE THROMBOSIS HEMMROIDS Time Seen by Provider: 12/26/18 20:27 Mode of Arrival: Ambulatory Information source: Patient Notes: 38-year-old female presents to ED for complaint of severe abdominal pain and constipation. She states she has not had a bowel movement in 10 days. She states she has severe hemorrhoids. She states that she has had a lot of stomach problems since she had an ectopic and had it removed 10 years ago. She states that she has been given herself laxative high-fiber coffee and everything to get her going and she has not had a bowel movement. She states she is in severe pain and there is just "meat back there " I have greeted and performed a rapid initial assessment of this patient. A comprehensive ED assessment and evaluation of the patient, analysis of test results and completion of medical decision making process will be conducted by an additional ED providers. Dictation of this chart was performed using voice recognition software; therefore, there may be some unintended grammatical errors. TRAVEL OUTSIDE OF THE [place] IN LAST 30 DAYS: No - Related Data Allergies/Adverse Reactions: codeine Adverse Reaction (Verified 12/26/18 19:30) Past Medical History - Social History Chew tobacco use (# tins/day): No Frequency of alcohol use: None Drug Abuse: None Pulmonary Medical History: Reports: Hx Asthma, Hx Bronchitis Renal/ Medical History: Denies: Hx Peritoneal Dialysis Musculoskeltal Medical History: Reports Hx Musculoskeletal Trauma Psychiatric Medical History: Reports: Hx Anxiety, Hx Depression Past Surgical History: Reports: Hx Bowel Surgery, Hx Dilation and Curettage, Hx Gynecologic Surgery - ectopic L tube, Hx Tubal Ligation - Immunizations Immunizations up to date: No Hx Diphtheria, Pertussis, Tetanus Vaccination: Yes Physical Exam - Vital signs Vitals: Temp Pulse Resp BP Pulse Ox 98.3 F 71 20 123/94 H 99 12/26/18 19:31 12/26/18 19:31 12/26/18 19:31 12/26/18 19:31 12/26/18 19:31 Course - Vital Signs Vital signs: Temp Pulse Resp BP Pulse Ox 98.2 F 88 18 154/78 H 100 12/26/18 20:20 12/26/18 20:20 12/26/18 20:20 12/26/18 20:20 12/26/18 20:20
[2018-12-26 20:52] LABS: ABSOLUTE BASOPHILS # (AUTO) 0.1 10^3/uL (0.0-0.2); ABSOLUTE EOSINOPHILS # (AUTO) 0.2 10^3/uL (0.0-0.6); ABSOLUTE LYMPHOCYTES (AUTO) 3.4 10^3/uL (0.5-4.7); ABSOLUTE MONOCYTES (AUTO) 0.4 10^3/uL (0.1-1.4); ABSOLUTE NEUT (AUTO) 5.1 10^3/uL (1.7-8.2); BASOPHILS % (AUTO) 1.4 % (0-2); EOSINOPHILS % (AUTO) 1.8 % (0-6); HEMOGLOBIN 13.1 g/dL (12.0-15.5); LYMPHOCYTES % (AUTO) 37.5 % (13-45); MEAN CORPUSCULAR HEMOGLOBIN 28.9 pg (27.0-33.4); MEAN CORPUSCULAR HGB CONC 32.8 g/dL (32.0-36.0); MEAN CORPUSCULAR VOLUME 88 fl (80-97); PLATELET COUNT 296 10^3/uL (150-450); RED BLOOD COUNT 4.55 10^6/uL (3.72-5.28); RED CELL DISTRIBUTION WIDTH 14.8 % (11.5-14.0); SEGMENTED NEUTROPHILS % (AUTO) 55.3 % (42-78); TOTAL CELLS COUNTED % (AUTO) 100 %; WHITE BLOOD COUNT 9.2 10^3/uL (4.0-10.5)
[2018-12-26 21:09] LABS: ALANINE AMINOTRANSFERASE 36 U/L (9-52); ALBUMIN 3.9 g/dL (3.5-5.0); ALKALINE PHOSPHATASE 97 U/L (38-126); ANION GAP 9 (5-19); ASPARTATE AMINO TRANSFERASE 26 U/L (14-36); BILIRUBIN,DIRECT 0.3 mg/dL (0.0-0.4); BILIRUBIN,TOTAL 0.4 mg/dL (0.2-1.3); BLOOD UREA NITROGEN 9 mg/dL (7-20); CALCIUM 9.7 mg/dL (8.4-10.2); CARBON DIOXIDE 23 mmol/L (22-30); CHLORIDE 106 mmol/L (98-107); GLUCOSE 99 mg/dL (75-110); POTASSIUM 4.4 mmol/L (3.6-5.0); SODIUM 137.5 mmol/L (137-145); TOTAL PROTEIN 6.9 g/dL (6.3-8.2)
[2018-12-26 21:26] LABS: APPEARANCE,URINE CLEAR; BILIRUBIN,URINE NEGATIVE (NEGATIVE); COLOR,URINE STRAW; GLUCOSE, URINE NEGATIVE (NEGATIVE); KETONES,URINE NEGATIVE (NEGATIVE); LEUKOCYTE ESTERASE,URINE LARGE (NEGATIVE); NITRITE,URINE NEGATIVE (NEGATIVE); PROTEIN,URINE NEGATIVE (NEGATIVE); UROBILINOGEN,URINE NEGATIVE mg/dL (<2.0)
[2018-12-26 21:33] LABS: URINE SPECIFIC GRAVITY 1.016
[2018-12-26] MEDS ORDERED: LIDOCAINE 2% JELLY 5 ML TUBE TOP ONE (23:35)
--- NOTE | 2018-12-27 00:05 | ER Document Report ---
ED General - General Chief Complaint: Abdominal Pain Stated Complaint: POSSIBLE THROMBOSIS HEMMROIDS Time Seen by Provider: 12/26/18 20:27 Primary Care Provider: PROSPER CASEY MD [ACTIVE STAFF] - (call office in the morning to make a close follow up appointment.) Mode of Arrival: Ambulatory Notes: Patient is a 38-year-old female who presents with complaint of hemorrhoids. She says that she has had hemorrhoids a few times in the past and is actually required surgery. She says she has not had a bowel movement 9 days. She says she feels that her rectum is obstructed from the hemorrhoids. She has been taking [id number] hemorrhoid treatment. She is also been doing high-fiber diet to try to keep her stool soft. She denies any vomiting. No fevers. Says her abdomen feels constipated. No other complaints at this time. She says that she does have some Percocet that she has been taking for pain. TRAVEL OUTSIDE OF THE [place] IN LAST 30 DAYS: No - Related Data Allergies/Adverse Reactions: codeine Adverse Reaction (Verified 12/26/18 19:30) Past Medical History - General Information source: Patient - Social History Smoking Status: Current Every Day Smoker Chew tobacco use (# tins/day): No Frequency of alcohol use: None Drug Abuse: None Family History: Reviewed & Not Pertinent Patient has suicidal ideation: No Patient has homicidal ideation: No Pulmonary Medical History: Reports: Hx Asthma, Hx Bronchitis Renal/ Medical History: Denies: Hx Peritoneal Dialysis Musculoskeletal Medical History: Reports Hx Musculoskeletal Trauma Psychiatric Medical History: Reports: Hx Anxiety, Hx Depression Past Surgical History: Reports: Hx Bowel Surgery, Hx Dilation and Curettage, Hx Gynecologic Surgery - ectopic L tube, Hx Tubal Ligation - Immunizations Immunizations up to date: No Hx Diphtheria, Pertussis, Tetanus Vaccination: Yes Hx Pneumococcal Vaccination: 06/21/12 Review of Systems - Review of Systems Notes: My Normal Review Basic REVIEW OF SYSTEMS: CONSTITUTIONAL : Denies fever, chills, or sweats. Denies recent illness. EENT: Denies eye, ear, throat, or mouth pain or symptoms. Denies nasal or sinus congestion. CARDIOVASCULAR: Denies chest pain. RESPIRATORY: Denies cough, cold, or chest congestion. Denies shortness of breath, difficulty breathing, or wheezing. GASTROINTESTINAL: Abdominal pain. Denies nausea, vomiting, or diarrhea. Planes of constipation GENITOURINARY: Denies difficulty urinating, painful urination, burning, frequency, or blood in urine. MUSCULOSKELETAL: Denies neck or back pain or joint pain or swelling. SKIN: Denies rash or skin lesions. NEUROLOGICAL: Denies altered mental status or loss of consciousness. Denies headache. Denies weakness or paralysis or loss of use of either side. Denies problems with gait or speech. Denies sensory or motor loss. ALL OTHER SYSTEMS REVIEWED AND NEGATIVE. Physical Exam - Vital signs Vitals: Temp Pulse Resp BP Pulse Ox 98.3 F 71 20 123/94 H 99 12/26/18 19:31 12/26/18 19:31 12/26/18 19:31 12/26/18 19:31 12/26/18 19:31 - Notes Notes: General Appearance: Well nourished, alert, cooperative, no acute distress, no obvious discomfort. When I entered the room patient is lying comfortably in the bed laughing and talking with her sister on the phone. Vitals: reviewed, See vital signs table. Mouth: No decreasd moisture Lungs: No wheezing, No rales, No rhonci, No accessory muscle use, good air exchange bilaterally. Heart: Normal rate, Regular rythm, No murmur, no rub Abdomen: Normal BS, abdomen is soft. Is not rigid or firm. She has mild diffuse tenderness to palpation. Exam is very benign. Rectal exam: Patient has a internal hemorrhoid which is protruding from the rectum. It is soft and normal in color. Is not purple or firm. Is not consistent with a thrombosed hemorrhoid. Rectal exam performed with female nurse personal injury specialist, Genevieve navas, in the room. Extremities: good pulses in all extremities Skin: warm, dry, appropriate color Neuro: speech clear, oriented x 3, normal affect, responds appropriately to questions. Course - Re-evaluation Re-evalutation: 12/27/18 04:48 Patient initially was requesting stronger pain medicine however informed her th at stronger pain medicine will be opiate pain medicine and this would make her more constipated. I recommend against her taking Percocet as well. I informed her that topical treatment for the hemorrhoids would be more appropriate. I told her that continued use of opiates because increasing constipation make it harder for her to pass bowel movements. Patient shows understanding of this. X-ray showed that she has mild constipation. She does not have bowel dilation or any evidence of obstruction. On exam she did have one hemorrhoid was protruding and was swollen and painful to touch. It was not firm or purple. It is not thrombosed appearing. She has no bleeding at this time on exam. Feel that she is safe to follow-up outpatient with surgery clinic for further treatment of her hemorrhoids. I encouraged her to continue high-fiber diet. I will prescribe her Proctofoam. I encouraged her to do sitz baths. I encouraged her return to ER if she has worsening pain, fevers, vomiting, or if she feels like she is worsening. Patient agrees with plan will be discharged home. Dictation of this chart was performed using voice recognition software; therefore, there may be some unintended grammatical errors. - Vital Signs Vital signs: Temp Pulse Resp BP Pulse Ox 97.9 F 80 18 150/79 H 100 12/27/18 01:13 12/27/18 01:13 12/26/18 20:20 12/27/18 01:13 12/27/18 01:13 - Laboratory Result Diagrams: 12/26/18 20:30 12/26/18 20:30 Laboratory results interpreted by me: 12/26/18 12/26/18 20:30 20:45 RDW 14.8 H Urine Blood SMALL H Ur Leukocyte Esterase LARGE H Discharge - Discharge Clinical Impression: Constipation Qualifiers: Constipation type: unspecified constipation type Qualified Code(s): K59.00 - Constipation, unspecified Hemorrhoids Qualifiers: Hemorrhoid type: unspecified Qualified Code(s): K64.9 - Unspecified hemorrhoids UTI (urinary tract infection) Qualifiers: Urinary tract infection type: site unspecified Hematuria presence: with hematuria Qualified Code(s): N39.0 - Urinary tract infection, site not specified Condition: Good Disposition: HOME, SELF-CARE Additional Instructions: Currently you do have internal hemorrhoid that is protruding from the rectum. It is swollen and tender. This is why it hurts to attempt to have a bowel mov ement. Is not currently thrombosed. Your x-ray shows just mild constipation. There is no distention of your bowel. At this time it is appropriate to have you follow-up with the surgery clinic. The number to the surgery clinic is under the name Dr. Casey in your discharge paperwork. Please call the office this morning to make a close follow-up appointment. I prescribed you a foam called Proctofoam. Please use this as prescribed. This will also help with hemorrhoids. Please do sitz bath twice a day. Please return to the ER if you have vomiting, fevers, increasing pain. Your urinalysis does show evidence of some urinary tract infection. I will place you on an antibiotic that you will take twice a day for 3 days. Prescriptions: RX: Cephalexin Monohydrate [Keflex 500 mg Capsule] 500 mg PO BID 3 Days #6 capsule Hydrocortisone/Pramoxine [Proctofoam-Hc Foam] 10 gm RC ASDIR PRN #1 foam PRN Reason: Forms: Return to Work Referrals: PROSPER CASEY MD [ACTIVE STAFF] - (call office in the morning to make a close follow up appointment.)
[2018-12-27] MEDS ORDERED: ACETAMINOPHEN 325 MG TABLET PO ONE (00:14)
--- NOTE | 2018-12-27 00:30 | RADIOLOGY REPORT (SQ) ---
CLINICAL HISTORY: constipation COMPARISON: None. TECHNIQUE: XR ABDOMEN 2 VIEWS SUPINE ERECT 12/26/2018 11:36 PM CDT FINDINGS: There are scattered stool throughout the colon. There are no abnormal radiopaque foreign bodies or abnormal calcifications. Osseous structures are grossly unremarkable. IMPRESSION: Mild constipation.
[2018-12-27] MEDS ORDERED: CEPHALEXIN 500 MG CAPSULE PO ONE ×2 (01:02→01:08)
[2018-12-27 01:14] VITALS: BP 150/79
== END 2018-12-27 01:15 | disposition home or self-care (01) ==
LOC: ER 19:06
DX: K64.8 Other hemorrhoids (principal); K59.00 Constipation, unspecified; N39.0 Urinary tract infection, site not specified; R31.9 Hematuria, unspecified; F17.200 Nicotine dependence, unspecified, uncomplicated; J45.909 Unspecified asthma, uncomplicated
CPT/HCPCS: 99284; 36415; 84703; 85025; 80053; 81001; 74019; J3490 ×2

== ENCOUNTER 2019-04-07 11:41 | Emergency (ER) | payer MEDICAID ==
[2019-04-07] MEDS ORDERED: ACETAMINOPHEN 325 MG TABLET PO ONE (11:56)
[2019-04-07] MEDS ORDERED: PROMETHAZINE HCL 25 MG TABLET PO ONE (11:56)
--- NOTE | 2019-04-07 11:56 | ER Document Report ---
ED Medical Screen (RME) - General Chief Complaint: Shortness Of Breath Stated Complaint: CHEST PAIN/DIFFICULTY BREATHING Time Seen by Provider: 04/07/19 11:49 Mode of Arrival: Ambulatory Information source: Patient Notes: 38-year-old female presented to ED for complaint of cough congestion shortness of breath. She states the cold and her throat is choking or so she cannot breathe when she tries to lay down. She states she does have a history of asthma and bronchitis as well as COPD. She denies any cardiac history she is wheezing audibly expiratory. O2 sats are 96% pulse is between 46 and 92 blood pressure 147/87 temp is 98.2. He states she just did a albuterol treatment. She states she also used to a red bump in her purple disc. She states she went to her primary care doctor today they gave her a steroid shot and albuterol treatment but told her that they were not allowed to write any narcotics this week. They then sent her to the emergency room. I have greeted and performed a rapid initial assessment of this patient. A comprehensive ED assessment and evaluation of the patient, analysis of test results and completion of medical decision making process will be conducted by an additional ED providers. TRAVEL OUTSIDE OF THE [place] IN LAST 30 DAYS: No - Related Data Allergies/Adverse Reactions: codeine Adverse Reaction (Verified 12/26/18 19:30) Past Medical History Pulmonary Medical History: Reports: Hx Asthma, Hx Bronchitis Renal/ Medical History: Denies: Hx Peritoneal Dialysis Musculoskeltal Medical History: Reports Hx Musculoskeletal Trauma Psychiatric Medical History: Reports: Hx Anxiety, Hx Depression Past Surgical History: Reports: Hx Bowel Surgery, Hx Dilation and Curettage, Hx Gynecologic Surgery - ectopic L tube, Hx Tubal Ligation - Immunizations Immunizations up to date: No Hx Diphtheria, Pertussis, Tetanus Vaccination: Yes
[2019-04-07] MEDS ORDERED: ALBUTEROL SULFATE 0.083% NEB 2.5 MG/3 ML AMPUL NEB ONE (11:57)
[2019-04-07] MEDS ORDERED: IPRATROPIUM/ALBUTEROL 0.5-2.5 MG/3 ML AMPUL NEB ONE (11:57)
--- NOTE | 2019-04-07 13:00 | RADIOLOGY REPORT (SQ) ---
EXAM DESCRIPTION: CHEST 2 VIEWS COMPLETED DATE/TIME: 04/07/2019 12:49 pm REASON FOR STUDY: cough congestion wheezing COMPARISON: 04/04/2018 EXAM PARAMETERS: NUMBER OF VIEWS: two views TECHNIQUE: Digital Frontal and Lateral radiographic views of the chest acquired. RADIATION DOSE: NA LIMITATIONS: none FINDINGS: LUNGS AND PLEURA: No opacities, masses or pneumothorax. No pleural effusion. MEDIASTINUM AND HILAR STRUCTURES: No masses or contour abnormalities. HEART AND VASCULAR STRUCTURES: Heart normal size. No evidence for failure. BONES: No acute findings. HARDWARE: None in the chest. OTHER: No other significant finding. IMPRESSION: NO ACUTE RADIOGRAPHIC FINDING IN THE CHEST. TECHNICAL DOCUMENTATION: JOB ID: [id number] [employer]- All Rights Reserved Reading location - IP/workstation name: [email or web address]
[2019-04-07 13:01] LABS: ABSOLUTE BASOPHILS # (AUTO) 0.1 10^3/uL (0.0-0.2); ABSOLUTE EOSINOPHILS # (AUTO) 0.1 10^3/uL (0.0-0.6); ABSOLUTE LYMPHOCYTES (AUTO) 1.4 10^3/uL (0.5-4.7); ABSOLUTE MONOCYTES (AUTO) 0.2 10^3/uL (0.1-1.4); ABSOLUTE NEUT (AUTO) 5.2 10^3/uL (1.7-8.2); BASOPHILS % (AUTO) 0.8 % (0-2); EOSINOPHILS % (AUTO) 1.4 % (0-6); HEMATOCRIT 42.5 % (36.0-47.0); HEMOGLOBIN 13.8 g/dL (12.0-15.5); LYMPHOCYTES % (AUTO) 20.3 % (13-45); MEAN CORPUSCULAR HEMOGLOBIN 28.5 pg (27.0-33.4); MEAN CORPUSCULAR HGB CONC 32.4 g/dL (32.0-36.0); MEAN CORPUSCULAR VOLUME 88 fl (80-97); MONOCYTES % (AUTO) 2.9 % (3-13); PLATELET COUNT 332 10^3/uL (150-450); RED BLOOD COUNT 4.84 10^6/uL (3.72-5.28); RED CELL DISTRIBUTION WIDTH 15.7 % (11.5-14.0); SEGMENTED NEUTROPHILS % (AUTO) 74.6 % (42-78); TOTAL CELLS COUNTED % (AUTO) 100 %
[2019-04-07 13:09] LABS: ALBUMIN 4.2 g/dL (3.5-5.0); ALKALINE PHOSPHATASE 109 U/L (38-126); ANION GAP 11 (5-19); ASPARTATE AMINO TRANSFERASE 43 U/L (14-36); BILIRUBIN,DIRECT 0.1 mg/dL (0.0-0.4); BILIRUBIN,TOTAL 0.6 mg/dL (0.2-1.3); BLOOD UREA NITROGEN 11 mg/dL (7-20); CALCIUM 9.5 mg/dL (8.4-10.2); CARBON DIOXIDE 21 mmol/L (22-30); CHLORIDE 107 mmol/L (98-107); GLUCOSE 103 mg/dL (75-110); TOTAL PROTEIN 7.8 g/dL (6.3-8.2)
--- NOTE | 2019-04-07 13:53 | ER Document Report ---
ED Respiratory Problem - General Chief Complaint: Shortness Of Breath Stated Complaint: CHEST PAIN/DIFFICULTY BREATHING Time Seen by Provider: 04/07/19 11:49 Mode of Arrival: Ambulatory Notes: Patient is a 38-year-old female with a history of asthma, bronchitis and COPD who presents to the emergency department with a chief complaint of cough and congestion. Patient states that she has had cough and congestion for about 4 to 5 days. She reports she does have sick family members at home with similar symptoms. Patient denies fever but does report chills. Patient reports she did see Dr. Kim this morning who is her primary care physician who gave her a steroid injection as well as an albuterol treatment. Patient states she was sent over here for an evaluation. Patient denies nausea, vomiting or diarrhea. Patient reports she has been using her albuterol inhalers and nebulizer treatments at home. Patient reports she does wear her oxygen 3 L as needed for her COPD. TRAVEL OUTSIDE OF THE [place] IN LAST 30 DAYS: No - Related Data Allergies/Adverse Reactions: No Known Allergies Allergy (Unverified 04/07/19 12:02) Past Medical History - General Information source: Patient - Social History Smoking Status: Former Smoker Chew tobacco use (# tins/day): No Frequency of alcohol use: None Drug Abuse: None Lives with: Family Family History: Reviewed & Not Pertinent Patient has suicidal ideation: No Patient has homicidal ideation: No - Past Medical History Cardiac Medical History: Reports: None Pulmonary Medical History: Reports: Hx Asthma, Hx Bronchitis, Hx COPD EENT Medical History: Reports: None Neurological Medical History: Reports: None Endocrine Medical History: Reports: None Renal/ Medical History: Reports: None. Denies: Hx Peritoneal Dialysis Malignancy Medical History: Reports: None GI Medical History: Reports: None Musculoskeletal Medical History: Reports Hx Musculoskeletal Trauma Skin Medical History: Reports None Psychiatric Medical History: Reports: Hx Anxiety, Hx Depression Traumatic Medical History: Reports: None Infectious Medical History: Reports: None Past Surgical History: Reports: Hx Bowel Surgery, Hx Dilation and Curettage, Hx Gynecologic Surgery - ectopic L tube, Hx Tubal Ligation - Immunizations Immunizations up to date: No Hx Diphtheria, Pertussis, Tetanus Vaccination: Yes Hx Pneumococcal Vaccination: 06/21/12 Review of Systems - Review of Systems Constitutional: See HPI EENT: See HPI Cardiovascular: No symptoms reported Respiratory: See HPI Gastrointestinal: No symptoms reported Genitourinary: No symptoms reported Female Genitourinary: No symptoms reported Musculoskeletal: No symptoms reported Skin: No symptoms reported Hematologic/Lymphatic: No symptoms reported Neurological/Psychological: No symptoms reported Physical Exam - Vital signs Vitals: Temp Pulse Resp BP Pulse Ox 98.2 F 86 22 H 147/87 H 97 04/07/19 11:51 04/07/19 11:51 04/07/19 11:51 04/07/19 11:51 04/07/19 11:51 Interpretation: Hypertensive - Notes Notes: GENERAL: Well-appearing, well-nourished and in no acute distress. HEAD: Atraumatic, normocephalic. EYES: Pupils equal round and reactive to light, extraocular movements intact, sclera anicteric, conjunctiva are normal. ENT: Nares patent, oropharynx clear without exudates. Moist mucous membranes. NECK: Normal range of motion, supple without lymphadenopathy or JVD. LUNGS: Expiratory wheezing noted throughout and bilaterally. + congestion. HEART: Regular rate and rhythm without murmurs, rubs or gallops. ABDOMEN: Soft, nontender, normoactive bowel sounds. No guarding, no rebound. No masses appreciated. BACK: No cervical, thoracic, lumbar midline tenderness. No saddle anesthesia, normal distal neurovascular exam. GENITOURINARY: Deferred. EXTREMITIES: Normal range of motion, no pitting or edema. No clubbing or cyanosis. NEUROLOGICAL: Cranial nerves II through XII grossly intact. Normal speech, normal gait. PSYCH: Normal mood, normal affect. SKIN: Warm, Dry, normal turgor, no rashes or lesions noted. Course - Re-evaluation Re-evalutation: 04/07/19 13:45 Upon initial assessment patient is sitting on the stretcher on a cardiac rehab nurse. Patient's oxygen level is 96% on room air. Patient continues to have expiratory wheezing. Patient is able to speak in full complete sentences. I did inform the patient that I would like to give her another breathing treatment and to reevaluate. Patient states that she has plenty of breathing treatments at home. Patient became upset stating that we are not helping her. I did inform the patient that I would reevaluate her symptoms after another DuoNeb. Patient had already received a steroid injection at her primary care physician's office. Patient states she came here to get something for cough. I did inform the patient she does not have a pneumonia on the chest x-ray and that I would give her Tessalon Perles for cough. Patient states she cannot take Tessalon Perles. I did inform the patient that we can do [id number] Robitussin. Patient states this would not help with her symptoms. Patient is refusing to stay for breathing treatment and continued treatment. Patient left AGAINST MEDICAL ADVICE. - Vital Signs Vital signs: Temp Pulse Resp BP Pulse Ox 98.2 F 86 14 115/74 100 04/07/19 11:51 04/07/19 11:51 04/07/19 13:01 04/07/19 13:01 04/07/19 13:01 - Laboratory Result Diagrams: 04/07/19 12:40 04/07/19 12:40 Laboratory results interpreted by me: 04/07/19 04/07/19 12:40 12:40 RDW 15.7 H [place] % (Auto) 2.9 L Carbon Dioxide 21 L AST 43 H 04/07/19 13:53 Laboratory 04/07/19 04/07/19 12:40 12:40 WBC 7.0 RBC 4.84 Hgb 13.8 Hct 42.5 MCV 88 MCH 28.5 MCHC 32.4 RDW 15.7 H Plt Count 332 Lymph % (Auto) 20.3 [place] % (Auto) 2.9 L Eos % (Auto) 1.4 Baso % (Auto) 0.8 Absolute Neuts (auto) 5.2 Absolute Lymphs (auto) 1.4 Absolute Monos (auto) 0.2 Absolute Eos (auto) 0.1 Absolute Basos (auto) 0.1 Seg Neutrophils % 74.6 Sodium 139.3 Potassium 4.0 Chloride 107 Carbon Dioxide 21 L Anion Gap 11 BUN 11 Creatinine 0.81 Est GFR ( Amer) > 60 Est GFR (MDRD) Non-Af > 60 Glucose 103 Calcium 9.5 Total Bilirubin 0.6 Direct Bilirubin 0.1 Neonat Total Bilirubin Not Reportable Neonat Direct Bilirubin Not Reportable Neonat Indirect Bili Not Reportable AST 43 H ALT 102 Alkaline Phosphatase 109 Total Protein 7.8 Albumin 4.2 - Diagnostic Test Radiology reviewed: Reports reviewed Radiology results interpreted by me: 04/07/19 13:53 Chest X-Ray 04/07/19 11:58 IMPRESSION: NO ACUTE RADIOGRAPHIC FINDING IN THE CHEST. Discharge - Discharge Clinical Impression: Wheezing, Cough, Congestion of nasal sinus Asthma Qualifiers: Asthma severity: mild Asthma persistence: unspecified Asthma complication type: with acute exacerbation Qualified Code(s): J45.901 - Unspecified asthma with (acute) exacerbation Condition: Stable Disposition: AGAINST MEDICAL ADVICE
[2019-04-07 14:07] VITALS: BP 115/74
--- NOTE | 2019-04-09 00:25 | EKG REPORT ---
SEVERITY:- ABNORMAL ECG - SINUS RHYTHM NONSPECIFIC T ABNORMALITIES, DIFFUSE LEADS : Confirmed by: Sharmaine Mcneil 09-Apr-2019 00:23:56
== END 2019-04-07 13:50 | disposition left against medical advice (07) ==
LOC: ER 11:41
DX: J45.901 Unspecified asthma with (acute) exacerbation (principal); J44.9 Chronic obstructive pulmonary disease, unspecified; R09.81 Nasal congestion; R05 Cough; R68.83 Chills (without fever); Z79.899 Other long term (current) drug therapy; Z53.20 Procedure and treatment not carried out because of patient's decision for unspecified reasons
CPT/HCPCS: 93005; 36415; 85025; 80053; 71046; 93010; J3490 ×2; J7620; 94640; 99285

== ENCOUNTER 2019-07-01 19:53 | Emergency (ER) | payer MEDICAID ==
--- NOTE | 2019-07-01 20:29 | ER Document Report ---
ED Medical Screen (RME) - General Chief Complaint: Facial Swelling Stated Complaint: FACIAL PAIN/SWELLING Time Seen by Provider: 07/01/19 20:21 Primary Care Provider: SHANT ANDREA [Primary Care Provider] - Follow up as needed TRAVEL OUTSIDE OF THE [place] IN LAST 30 DAYS: No - HPI Notes: 07/01/19 20:26 Patient is a 38-year-old female with a chronic history of sinus issues and has s urgery scheduled on Wednesday with Dr. Rojas complaining of facial pain. Patient was unable to that he had a hold of him today and came here for evaluation. No fever. Because of her surgery coming up, recommend medication review with ENT so as not to hinder or postpone her surgery. I have treated and performed a rapid initial assessment of this patient. A comprehensive ED assessment and evaluation of the patient, analysis of test results and completion of medical decision making process will be conducted by additional ED providers. PHYSICAL EXAMINATION: GENERAL: Well-appearing, well-nourished and in no acute distress. A&Ox4. Answers questions appropriately. - Related Data Allergies/Adverse Reactions: tramadol Allergy (Verified 06/30/19 10:08) Past Medical History - Past Medical History Cardiac Medical History: Denies: Hx Heart Attack, Hx Hypertension Pulmonary Medical History: Reports: Hx Asthma, Hx Bronchitis, Hx COPD Neurological Medical History: Denies: Hx Cerebrovascular Accident, Hx Seizures Renal/ Medical History: Denies: Hx Peritoneal Dialysis GI Medical History: Denies: Hx Hepatitis, Hx Hiatal Hernia, Hx Ulcer Musculoskeltal Medical History: Reports Hx Musculoskeletal Trauma Psychiatric Medical History: Reports: Hx Anxiety, Hx Depression Infectious Medical History: Denies: Hx Hepatitis Past Surgical History: Reports: Hx Bowel Surgery, Hx Dilation and Curettage, Hx Gynecologic Surgery - ectopic L tube, Hx Tubal Ligation. Denies: Hx Hysterectomy, Hx Mastectomy, Hx Open Heart Surgery, Hx Pacemaker - Immunizations Immunizations up to date: No Hx Diphtheria, Pertussis, Tetanus Vaccination: Yes Physical Exam - Vital signs Vitals: Temp Pulse Resp BP Pulse Ox 99.2 F 100 20 104/66 99 07/01/19 20:17 07/01/19 20:17 07/01/19 20:17 07/01/19 20:17 07/01/19 20:17 Course - Vital Signs Vital signs: Temp Pulse Resp BP Pulse Ox 99.2 F 100 20 104/66 99 07/01/19 20:17 07/01/19 20:17 07/01/19 20:17 07/01/19 20:17 07/01/19 20:17 Doctor's Discharge - Discharge Referrals: LOCALMD,NO [Primary Care Provider] - Follow up as needed
--- NOTE | 2019-07-01 22:01 | ER Document Report ---
HPI - HPI Patient complains to provider of: facial pain Time Seen by Provider: 07/01/19 20:21 Onset: Other Onset/Duration: Persistent Quality of pain: Burning, Sharp Pain Level: 5 Context: 38-year-old female presented to ED for chronic history of sinus issues. She states she has surgery scheduled with Dr. Garcia on Wednesday due to fungal infections in her sinuses. She states he told her to stop taking antibiotics because these are making it worse. She is constantly asking for antibiotics because she states it helps with her pain. She states she is definitely going to get her surgery done on Wednesday as she has been instructed. She is continually saying that the doctor told her to stop all antibiotics but that is the only thing that helps with her pain. She states she was told not to taking more Tylenol or ibuprofen as they are affecting her liver. She states that they did take some meat out of her face and now she has to have further surgery because she was not able to tolerate the surgery. Associated Symptoms: Other - Facial pain Exacerbated by: Denies Relieved by: Denies Similar symptoms previously: Yes Recently seen / treated by doctor: Yes - ROS ROS below otherwise negative: Yes - CONSTITUTIONAL Constitutional: DENIES: Fever, Chills - EENT Notes: Severe facial pain - NEURO Neurology: REPORTS: Headache - CARDIOVASCULAR Cardiovascular: DENIES: Chest pain - RESPIRATORY Respiratory: REPORTS: Coughing. DENIES: Trouble Breathing - GASTROINTESTINAL Gastrointestinal: DENIES: Abdominal Pain, Nausea, Patient vomiting, Diarrhea, Constipation, Black / Bloody Stools - URINARY Urinary: DENIES: Dysuria, Urgency, Frequency - REPRODUCTIVE Reproductive: DENIES: :, Postmenopausal, Abnormal bleeding / discharge - MUSCULOSKELETAL Musculoskeletal: DENIES: Extremity pain, Back Pain, Neck Pain, Swelling - DERM Skin Color: Normal Skin Problems: None Past Medical History - General Information source: Patient - Social History Smoking Status: Current Every Day Smoker Cigarette use (# per day): Yes - 4 cig Chew tobacco use (# tins/day): No Smoking Education Provided: Yes - 4 min Frequency of alcohol use: None Drug Abuse: None Lives with: Family Family History: Reviewed & Not Pertinent Patient has suicidal ideation: No Patient has homicidal ideation: No - Past Medical History Cardiac Medical History: Reports: None Pulmonary Medical History: Reports: Hx Asthma, Hx Bronchitis, Hx COPD EENT Medical History: Reports: None Neurological Medical History: Reports: None Endocrine Medical History: Reports: None Renal/ Medical History: Reports: None Malignancy Medical History: Reports: None GI Medical History: Reports: Hx Colonoscopy, Hx Endoscopy Musculoskeletal Medical History: Reports Hx Musculoskeletal Trauma Skin Medical History: Reports None Psychiatric Medical History: Reports: Hx Anxiety, Hx Depression, Hx Post Traumatic Stress Disorder Traumatic Medical History: Reports: None Infectious Medical History: Reports: None Past Surgical History: Reports: Hx Bowel Surgery, Hx Dilation and Curettage, Hx Gynecologic Surgery - ectopic L tube, Hx Tubal Ligation - Immunizations Immunizations up to date: No Hx Diphtheria, Pertussis, Tetanus Vaccination: Yes Hx Pneumococcal Vaccination: 06/21/12 Vertical Provider Document - CONSTITUTIONAL Agree With Documented VS: Yes - INFECTION CONTROL TRAVEL OUTSIDE OF THE [place] IN LAST 30 DAYS: No - HEENT Notes: Complains of severe facial pain. States that ENT is supposed to take some f ungal infection out of her sinuses on Wednesday - NECK Neck: Normal Inspection - RESPIRATORY Respiratory: Breath Sounds Normal, No Respiratory Distress, Chest Non-Tender - CARDIOVASCULAR Cardiovascular: Regular Rate, Regular Rhythm - GI/ABDOMEN Gastrointestinal: Abdomen Soft, Abdomen Non-Tender, No Organomegaly, Normal Bowel Sounds - MUSCULOSKELETAL/EXTREMETIES Musculoskeletal/Extremeties: MAEW, FROM, Non-Tender - NEURO Level of Consciousness: Awake, Alert, Appropriate Motor/Sensory: No Motor Deficit, No Sensory Deficit, No Pronator Drift Deep Tendon Reflexes: 2+ - DERM Integumentary: Warm, Dry, No Rash Course - Re-evaluation Re-evalutation: 07/01/19 23:02 patient was treated with one oxycodone for her facial pain. she verbalized understanding that she needs to go to the surgery as scheduled on wednesday. she was instructed on why I could not give her antibiotic when the ENT took her off all medications for the surgery on wednesday. - Vital Signs Vital signs: Temp Pulse Resp BP Pulse Ox 99.2 F 100 20 104/66 99 07/01/19 20:17 07/01/19 20:17 07/01/19 20:17 07/01/19 20:17 07/01/19 20:17 Discharge - Discharge Clinical Impression: Facial pain Condition: Stable Disposition: HOME, SELF-CARE Additional Instructions: He was seen today for facial pain. He stated to have surgery scheduled for Wednesday for your facial pain for a fungal infection You cannot get antibiotics for a fungal infection. I will give you a pain medicine today but not a prescription and you will need to follow-up with your surgeon on Wednesday as scheduled. You can take Tylenol until you get into see your surgeon on Wednesday. Please follow his instructions preop Oral Narcotic Medication You have been given a oxycodone for pain control. This medication is a narcotic. It's best taken with food, as nausea can result if taken on an empty stomach. Don't operate machinery or drive within six hours of taking this medication. Do not combine this medicine with alcohol, or with any medication which can cause sedation (such as cold tablets or sleeping pills) unless you get permission from the physician. Narcotics tend to cause constipation. If possible, drink plenty of fluids and eat a diet high in fiber and fruits. FOLLOW-UP CARE: If you have been referred to a physician for follow-up care, call the physicians office for an appointment as you were instructed or within the next two days. If you experience worsening or a significant change in your symptoms, notify the physician immediately or return to the Emergency Department at any time for re-evaluation. Referrals: ZULLY,NO [Primary Care Provider] - Follow up as needed ANGELA GALLARDO DO [ASSOCIATE] - 07/03/19
[2019-07-01] MEDS ORDERED: OXYCODONE HCL IR 5 MG TABLET PO ONE (22:10)
[2019-07-01 22:17] VITALS: BP 127/84
== END 2019-07-01 22:16 | disposition home or self-care (01) ==
LOC: ER 19:53
DX: R51 Headache (principal); R05 Cough; F17.210 Nicotine dependence, cigarettes, uncomplicated; J44.9 Chronic obstructive pulmonary disease, unspecified
CPT/HCPCS: 99406; 99283; J3490

== ENCOUNTER 2019-07-03 07:35 | Day surgery (SDC) | payer MEDICAID ==
[~2019-07-03 07:35] MED LIST changes: +DEXAMETHASONE SOD PHOS INJ 10 MG/1 ML VIAL ONE; +DEXMEDETOMIDINE INJ 80 MCG/20 ML VIAL IV ONE; +FAMOTIDINE INJ/PF 20 MG/2 ML SDV IV ONE; +GLYCOPYRROLATE INJ 0.4 MG/2 ML VIAL ONE; +LIDOCAINE 2% INJ-PF (100 MG/5 ML) SYRINGE ONE; +ONDANSETRON HCL INJ/PF 4 MG/2 ML SDV ONE; +PROPOFOL INJ 200 MG/20 ML VIAL IV ONE; +SUCCINYLCHOLINE CHLORIDE INJ 200 MG/10 ML VIAL ONE
[2019-07-03] MEDS ORDERED: CEFAZOLIN 2 GM/D5W RTU 2 GM/50 ML RTUPB IV PRN (08:16)
[2019-07-03] MEDS ORDERED: BUPIVACAINE HCL 0.5%/EPI 1:200000 INJ 1.8 ML CARTRIDGE ONE (08:38)
[2019-07-03] MEDS ORDERED: BACITRACIN ZINC OINTMENT 15 GM ONE (08:38)
[2019-07-03] MEDS ORDERED: BUPIVACAINE HCL 0.5%-EPI 1:200000 INJ/PF 30 ML VIAL ONE (08:53)
[2019-07-03] MEDS: OXYMETAZOLINE HCL 0.05% NASAL SPRAY 15 ML BOTTLE ONE ×2 (09:30→10:05)
[2019-07-03] MEDS ORDERED: LIDOCAINE 2% JELLY 30 ML TUBE ONE (10:03)
[2019-07-03] MEDS ORDERED: FENTANYL CITRATE INJ/PF 100 MCG/2 ML AMPUL ONE (10:36)
[2019-07-03] MEDS ORDERED: OXYMETAZOLINE HCL 0.05% NASAL SPRAY 15 ML BOTTLE ONE (10:55)
[2019-07-03] MEDS ORDERED: ALBUTEROL SULFATE HFA (90 MCG/PUFF) 200 PUFF/8.5 GM MDI IH ONE (10:58)
--- NOTE | 2019-07-09 10:26 | Operative Report ---
Operative Report-[facility] Operative Report: DATE OF OPERATION: July 03, 2019 PREOPERATIVE DIAGNOSES: 1. Chronic nasal pain 2. Concern for nasal infectious process 3. Concern for possible nasal/septal mass 4. Concern for diffuse bilateral intranasal tissue necrosis 5. History of drug abuse to include nasal snorting of cocaine, and various o ther substances such as narcotics 6. Nasal septal deviation, Acquired 7. Bilateral inferior turbinate hypertrophy 8. Bilateral middle turbinate hypertrophy POSTOPERATIVE DIAGNOSES: 1. Chronic nasal pain 2. Concern for nasal infectious process 3. Concern for possible nasal/septal mass 4. Concern for diffuse bilateral intranasal tissue necrosis 5. History of drug abuse to include nasal snorting of cocaine, and various other substances such as narcotics 6. Nasal septal deviation, Acquired 7. Bilateral inferior turbinate hypertrophy 8. Bilateral middle turbinate hypertrophy PROCEDURES: 1. Bilateral transnasal inferior turbinate and septal mucosal biopsies 2. Bilateral transnasal rigid surgical endoscopy 3. Bilateral transnasal inferior turbinate and septal cultures 4. Bilateral intramural inferior turbinate reductions using submucus techniques 5. Bilateral exam under anesthesia of the nose SURGEON: Dr. Betsy Rojas Anesthesia Staff: TREASURE Menard ANESTHESIA: General endotracheal tube anesthesia/GETA DRAINS: None SPONGE COUNT: Verified NEEDLE COUNT: Verified SPECIMEN/MATERIALS FORWARD TO THE LAB: 1. Bilateral cultures were taken to include tissue from the nasal septal mucosa and inferior turbinate mucosa. 2. Bilateral biopsy specimens were taken from the nasal septal mucosa and inferior turbinate mucosa. ESTIMATED BLOOD LOSS: 5 mL TOTAL IV FLUIDS: 1000 mL COMPLICATIONS: None FINDINGS: 1. Severe bilateral septal mucosa, bilateral inferior turbinate mucosa, and bilateral middle turbinate mucosa and other areas of severe diffuse white/yellowish appearance of tissue necrosis with overlying infection. 2. Bialateral Inferior turbinate, middle turbinate hypertrophy, and nasal septal deviation. INDICATIONS: This is a 38-year-old Afro-[place] female patient who was seen and evaluated in the [facility] office. [id number] The procedure, and all of the risks and complications were all discussed in detail with the patient. They voiced an understanding, agreed to proceed, and consent was obtained. DESCRIPTION OF OPERATIVE PROCEDURE: The patient was taken to the main operating room and placed on the operating room table in the supine position. Appropriate monitors were placed. Using mask and IV access general anesthesia was induced. The patient was then transorally intubated without difficulty. The table was next positioned for nasal surgery. The patient underwent a nasal examination and local anesthetic with epinephrine was administered to establish a nasal block. The patient next had two Afrin soaked neuropatties placed into each nasal passage. The patient was then prepped and draped in the usual fashion for nasal surgery. The neuropatties were removed and the patient underwent a hemitransfixion incision. There was elevation of the mucoperichondrial and mucoperiosteal flaps without difficulty. The bony cartilaginous junction was identified and divided and the most deviated portions of the bony and cartilaginous septum were removed without difficulty. There was a greater then 1.5 X 1.5 cm cartilaginous L-Strut preserved. Attention was now turned to performing bilateral inferior turbinate reductions. The turbinate bipolar wand was used to make 2 - 3 intramural passes in each inferior turbinate. At this point the turbinate microdebrider system at a setting of 1500 RPM was used to perform bilateral inferior turbinate submucous resections. This was followed by use of the Alden elevator to outfracture each inferior turbinate. [Excessive/redundant mucosa at the anterior portion of the inferior turbinates was next trimmed with margins reapproximated with chromic suture.] At this point the nose was thoroughly suctioned. Once complete the septum was repositioned in the midline. Cartilage which had been excised during the case was placed back between the mucosal flaps. At this point the mucosal flaps were reapproximated and the hemitransfixion incision was closed using Chromic suture. [Chromic suture was also used to perform a septal mattress whipstitch.] This was followed by placement of intranasal supporting material in each nasal passage that was secured at the caudal aspect with 4-0 Prolene suture. The nose was then cleaned and dried. Next, the patient was returned to the anesthesia staff and was allowed to emerge from general anesthesia. The patient was extubated in the main operating room and was then transported to the postanesthesia recovery unit in stable condition. There were no complications. .
== END 2019-07-03 11:55 | disposition home or self-care (01) ==
LOC: SC 07:35
PROVIDERS: ATTEND Otolaryngology
DX: J34.3 Hypertrophy of nasal turbinates (principal); J34.89 Other specified disorders of nose and nasal sinuses; J34.2 Deviated nasal septum; R06.09 Other forms of dyspnea; J30.9 Allergic rhinitis, unspecified; J32.9 Chronic sinusitis, unspecified
CPT/HCPCS: 36415; 87070; 87205; 87075; 87077; 87186; 86003 ×24; 82785; 88342 ×2; 88305 ×2; 88312 ×2; 00160; 30140; 31231; J2250; J3490 ×6; J3010; J2001; J0330; J2405; J2704; S0028; J1100; J0690; 160

== ENCOUNTER → 2019-08-30 | Outpatient (CLI) | payer MEDICAID ==
--- NOTE | 2019-08-30 14:18 | RADIOLOGY REPORT (SQ) ---
EXAM DESCRIPTION: FOOT RIGHT COMPLETE COMPLETED DATE/TIME: 08/30/2019 2:07 pm REASON FOR STUDY: OTHER SPECIFIED SOFT TISSUE DISORDERS M79.89 OTHER SPECIFIED SOFT TISSUE DISORDER S COMPARISON: 10/28/2017 NUMBER OF VIEWS: Three views. TECHNIQUE: AP, lateral and oblique radiographic images acquired of the right foot. LIMITATIONS: None. FINDINGS: MINERALIZATION: Normal. BONES: No acute fracture or dislocation. No worrisome bone lesions. JOINTS: No effusions. SOFT TISSUES: No soft tissue swelling. No foreign body. OTHER: No other significant finding. IMPRESSION: NEGATIVE STUDY OF THE RIGHT FOOT. NO RADIOGRAPHIC EVIDENCE OF ACUTE INJURY. TECHNICAL DOCUMENTATION: JOB ID: [id number] 2010 [employer]- All Rights Reserved Reading location - IP/workstation name: [email or web address]
== END ==
LOC: RAD 13:47
PROVIDERS: ATTEND Family Medicine
DX: M79.89 Other specified soft tissue disorders (principal)

== ENCOUNTER 2019-09-04 10:49 | Emergency (ER) | payer MEDICAID | END 2019-09-04 11:35 | disposition left against medical advice (07) | LOC: ER 10:49 | DX: Z53.21 Procedure and treatment not carried out due to patient leaving prior to being seen by health care provider (principal); M79.673 Pain in unspecified foot ==

== ENCOUNTER 2019-09-06 13:46 | Day surgery (SDC) | payer MEDICAID ==
[~2019-09-06 13:46] MED LIST changes: +CEFAZOLIN 1 GM/D5W RTU 1 GM/50 ML RTUPB IV PRN; -DEXAMETHASONE SOD PHOS INJ 10 MG/1 ML VIAL ONE; +DEXAMETHASONE SOD PHOSPHATE INJ 4 MG/1 ML VIAL ONE; -DEXMEDETOMIDINE INJ 80 MCG/20 ML VIAL IV ONE; -FAMOTIDINE INJ/PF 20 MG/2 ML SDV IV ONE; -FENTANYL CITRATE INJ/PF 100 MCG/2 ML AMPUL ONE; -GLYCOPYRROLATE INJ 0.4 MG/2 ML VIAL ONE; +KETOROLAC TROMETHAMINE 60 MG/2 ML SDV ONE; -LIDOCAINE 2% INJ-PF (100 MG/5 ML) SYRINGE ONE; -MIDAZOLAM 2 MG/2 ML INJ ONE; -PROPOFOL INJ 200 MG/20 ML VIAL IV ONE; -SUCCINYLCHOLINE CHLORIDE INJ 200 MG/10 ML VIAL ONE
[2019-09-06] MEDS ORDERED: CEFAZOLIN 1 GM/D5W RTU 1 GM/50 ML RTUPB IV ONE (14:05)
[2019-09-06 14:25] LABS: HEMATOCRIT 39.2 % (36.0-47.0); MEAN CORPUSCULAR HEMOGLOBIN 28.9 pg (27.0-33.4); MEAN CORPUSCULAR HGB CONC 33.2 g/dL (32.0-36.0); MEAN CORPUSCULAR VOLUME 87 fl (80-97); PLATELET COUNT 378 10^3/uL (150-450); RED CELL DISTRIBUTION WIDTH 15.5 % (11.5-14.0); WHITE BLOOD COUNT 10.3 10^3/uL (4.0-10.5)
[2019-09-06] MEDS ORDERED: MIDAZOLAM 2 MG/2 ML INJ ONE ×2 (14:29→15:49)
[2019-09-06 14:42] LABS: ANION GAP 6 (5-19); BLOOD UREA NITROGEN 8 mg/dL (7-20); CALCIUM 9.2 mg/dL (8.4-10.2); CARBON DIOXIDE 23 mmol/L (22-30); CHLORIDE 107 mmol/L (98-107); GLUCOSE 75 mg/dL (75-110); POTASSIUM 4.2 mmol/L (3.6-5.0)
[2019-09-06] MEDS ORDERED: BUPIVACAINE HCL 0.25 % INJ/PF (2.5 MG/1 ML) 30 ML VIAL ONE (15:08)
[2019-09-06] MEDS ORDERED: DIPHENHYDRAMINE HCL 50 MG/ML VIAL IV PRN (15:09)
[2019-09-06] MEDS ORDERED: MEPERIDINE HCL/PF INJ 25 MG/1 ML DISP.SYRIN IV PRN (15:09)
[2019-09-06] MEDS ORDERED: FENTANYL CITRATE INJ/PF 100 MCG/2 ML AMPUL IV PRN ×3 (15:09)
[2019-09-06] MEDS ORDERED: ONDANSETRON HCL INJ/PF 4 MG/2 ML SDV IV PRN (15:09)
[2019-09-06] MEDS ORDERED: MORPHINE SULFATE 10 MG/ML INJ IV PRN (15:09)
--- NOTE | 2019-09-06 15:43 | Discharge Summary ---
Discharge Summary (SDC) - Discharge Final Diagnosis: RIGHT FOOT DEBRIDEMENT Date of Surgery: 09/06/19 Discharge Date: 09/06/19 Condition: Good Treatment or Instructions: WOUND CARE: 1) Do not remove dressing for 48 hours. After 48 hours, you may remove dressing and shower. Allow warm water to wash over incisions. Do not scrub. Pat dry. Cover with gauze and kerlix/levy wrap. Shower daily. Elevate leg. PAIN MANAGEMENT: 1) You may take Toradol 10mg one pill by mouth every six hours as needed for pain. Do not take additional NSAIDs with Toradol. You may supplement with Tylenol. FOLLOW UP: 1) You may follow up at [facility] in 7-10 days. Call clinic sooner with questions/concerns. Prescriptions: Ketorolac Tromethamine [Toradol 10 mg Tablet] 10 mg PO Q6HP PRN #20 tablet PRN Reason: Referrals: SATYA HANSON DO [Primary Care Provider] - Discharge Activity: Balance Activity w/Rest, Keep Legs Elevated, Other - Avoid direct pressure on wounds. Report the Following to Your Physician Immediately: Increase in Pain, Fever over 101 Degrees, Unusual Bleeding, Redness, Swelling, Warmth, Drainage-Foul Smelling
--- NOTE | 2019-09-06 15:44 | Operative Report ---
Operative Report DATE OF SURGERY: 09/06/19 PREOPERATIVE DIAGNOSIS: Multiple suspicious skin areas right foot, possible ret ained foreign body POSTOPERATIVE DIAGNOSIS: Same; no evidence of retained foreign body. OPERATION: 1. Exploration, and resection of 3 areas right foot including right fourth metatarsal area, right first metatarsal area, and left great toe. 2. Focused fluoroscopy right foot SURGEON: PROSPER CASEY ANESTHESIA: GA TISSUE REMOVED OR ALTERED: Multiple skin symptoms COMPLICATIONS: None ESTIMATED BLOOD LOSS: See below INTRAOPERATIVE FINDINGS: See below PROCEDURE: Patient taken to the operating room where general anesthesia was induced. Right foot was isolated, prepped and draped in sterile fashion. Surgical plan surgical timeout were conducted. Intraoperative fluoroscopy was conducted on the right foot. There was no evidence of foreign body despite manipulating the imaging from several angles. 3 spots on the right foot, right great toe, right first metatarsal head, and right fourth metatarsal head all anesthetized 1% plain lidocaine. All 3 areas were excised in elliptical fashion. These were small portions of skin approximately 2 x 4 mm. Wounds were irrigated and checked for foreign body and there was none. Wounds were irrigated again, and closed with 4-0 Ethilon suture. Dressings including form, 4 x 4's, Kerlix and Rivas wrap applied.. Patient taken recovery room in stable condition after successful extubation. The physician assistant golf coach, Ms. Gary, provided assistance during this case by: Assisting with retracting tissue, instillation of local anesthesia and closure of skin incisions.
[2019-09-06] MEDS ORDERED: FENTANYL CITRATE INJ/PF 100 MCG/2 ML AMPUL ONE (15:49)
[2019-09-06] MEDS ORDERED: PROPOFOL INJ 200 MG/20 ML VIAL IV ONE (15:50)
--- NOTE | 2019-09-06 15:51 | RADIOLOGY REPORT (SQ) ---
EXAM DESCRIPTION: NO CHG FLUORO; TOE RIGHT COMPLETED DATE/TIME: 09/06/2019 3:38 pm; 09/06/2019 3:39 pm REASON FOR STUDY: FB REMOVAL S80.859A SUPERFICIAL FOREIGN BODY, UNSPECIFIED LOWER LEG, IN COMPARISON: None. FLUOROSCOPY TIME: 1 0.1 minutes images saved to PACS. TECHNIQUE: Intra-operative images acquired during surgical procedure to evaluate progress. NUMBER OF IMAGES: 1 LIMITATIONS: None. FINDINGS: Limited intraoperative fluoroscopic images obtained. Please see operative report for deta iled description. IMPRESSION: IMAGE(S) OBTAINED DURING PROCEDURE. COMMENT: Quality ID [id number]: Final reports for procedures using fluoroscopy that document radiation exp osure indices, or exposure time and number of fluorographic images (if radiation exposure indices are not available) Please consult full operative report of the attending physician for description of the procedure. TECHNICAL DOCUMENTATION: JOB ID: [id number] 2010 [employer]- All Rights Reserved Reading location - IP/workstation name: [email or web address]
--- NOTE | 2019-09-06 15:51 | RADIOLOGY REPORT (SQ) ---
EXAM DESCRIPTION: NO CHG FLUORO; TOE RIGHT COMPLETED DATE/TIME: 09/06/2019 3:38 pm; 09/06/2019 3:39 pm REASON FOR STUDY: FB REMOVAL S80.859A SUPERFICIAL FOREIGN BODY, UNSPECIFIED LOWER LEG, IN COMPARISON: None. FLUOROSCOPY TIME: 1 0.1 minutes images saved to PACS. TECHNIQUE: Intra-operative images acquired during surgical procedure to evaluate progress. NUMBER OF IMAGES: 1 LIMITATIONS: None. FINDINGS: Limited intraoperative fluoroscopic images obtained. Please see operative report for deta iled description. IMPRESSION: IMAGE(S) OBTAINED DURING PROCEDURE. COMMENT: Quality ID [id number]: Final reports for procedures using fluoroscopy that document radiation exp osure indices, or exposure time and number of fluorographic images (if radiation exposure indices are not available) Please consult full operative report of the attending physician for description of the procedure. TECHNICAL DOCUMENTATION: JOB ID: [id number] 2010 [employer]- All Rights Reserved Reading location - IP/workstation name: [email or web address]
[2019-09-06] MEDS ORDERED: OXYCODONE-ACETAMINOPHEN 5-325 MG TABLET ONE (16:24)
[2019-09-06 16:53] VITALS: BP 138/92
== END 2019-09-06 16:40 | disposition left against medical advice (07) ==
LOC: OROUT 13:46
PROVIDERS: ATTEND Surgery
DX: S80.859A Superficial foreign body, unspecified lower leg, initial encounter (principal); W22.8XXA Striking against or struck by other objects, initial encounter; J45.909 Unspecified asthma, uncomplicated; R63.4 Abnormal weight loss; F17.210 Nicotine dependence, cigarettes, uncomplicated; Z86.14 Personal history of Methicillin resistant Staphylococcus aureus infection; Z79.51 Long term (current) use of inhaled steroids; Z79.899 Other long term (current) drug therapy
CPT/HCPCS: 36415; 85027; 81025; 80048; 88305 ×2; 73660; 00400; 17999; J2250; J0690; J1100; J1885; J3010; J2405; J3490; J2704

== ENCOUNTER 2019-11-26 02:07 | Emergency (ER) | payer MEDICAID ==
[2019-11-26 02:21] VITALS: BP 135/105
[2019-11-26 02:53] LABS: APPEARANCE,URINE SLIGHTLY-CLOUDY; BILIRUBIN,URINE NEGATIVE (NEGATIVE); COLOR,URINE YELLOW; GLUCOSE, URINE NEGATIVE (NEGATIVE); KETONES,URINE NEGATIVE (NEGATIVE); LEUKOCYTE ESTERASE,URINE SMALL (NEGATIVE); NITRITE,URINE NEGATIVE (NEGATIVE); PROTEIN,URINE NEGATIVE (NEGATIVE); UROBILINOGEN,URINE NEGATIVE mg/dL (<2.0)
[2019-11-26 02:54] LABS: ABSOLUTE BASOPHILS # (AUTO) 0.1 10^3/uL (0.0-0.2); ABSOLUTE EOSINOPHILS # (AUTO) 0.2 10^3/uL (0.0-0.6); ABSOLUTE LYMPHOCYTES (AUTO) 3.2 10^3/uL (0.5-4.7); ABSOLUTE MONOCYTES (AUTO) 0.7 10^3/uL (0.1-1.4); ABSOLUTE NEUT (AUTO) 4.7 10^3/uL (1.7-8.2); BASOPHILS % (AUTO) 1.5 % (0-2); EOSINOPHILS % (AUTO) 1.8 % (0-6); HEMATOCRIT 37.8 % (36.0-47.0); HEMOGLOBIN 12.5 g/dL (12.0-15.5); LYMPHOCYTES % (AUTO) 36.5 % (13-45); MEAN CORPUSCULAR HEMOGLOBIN 27.2 pg (27.0-33.4); MEAN CORPUSCULAR HGB CONC 33.2 g/dL (32.0-36.0); MEAN CORPUSCULAR VOLUME 82 fl (80-97); MONOCYTES % (AUTO) 7.7 % (3-13); PLATELET COUNT 355 10^3/uL (150-450); RED CELL DISTRIBUTION WIDTH 16.3 % (11.5-14.0); SEGMENTED NEUTROPHILS % (AUTO) 52.5 % (42-78); TOTAL CELLS COUNTED % (AUTO) 100 %; WHITE BLOOD COUNT 8.9 10^3/uL (4.0-10.5)
[2019-11-26 03:21] LABS: ALBUMIN 3.9 g/dL (3.5-5.0); ALKALINE PHOSPHATASE 109 U/L (38-126); ANION GAP 6 (5-19); ASPARTATE AMINO TRANSFERASE 29 U/L (14-36); BILIRUBIN,TOTAL 0.4 mg/dL (0.2-1.3); BLOOD UREA NITROGEN 16 mg/dL (7-20); CALCIUM 9.3 mg/dL (8.4-10.2); CARBON DIOXIDE 23 mmol/L (22-30); CHLORIDE 106 mmol/L (98-107); GLUCOSE 120 mg/dL (75-110); POTASSIUM 4.1 mmol/L (3.6-5.0); TOTAL PROTEIN 7.7 g/dL (6.3-8.2)
== END 2019-11-26 03:35 | disposition left against medical advice (07) ==
LOC: ER 02:07
DX: Z53.21 Procedure and treatment not carried out due to patient leaving prior to being seen by health care provider (principal)
CPT/HCPCS: 36415; 80053; 81001; 81025; 83690; 85025

== ENCOUNTER 2020-01-07 19:24 | Emergency (ER) | payer MEDICAID ==
[2020-01-07 19:44] VITALS: BP 148/91
--- NOTE | 2020-01-07 19:57 | ER Document Report ---
ED Medical Screen (RME) - General Stated Complaint: RUNNY NOSE/FEVER/LIGHT HEADED/BLURED VISION Time Seen by Provider: 01/07/20 19:49 Primary Care Provider: SATYA HANSON DO [Primary Care Provider] - Follow up as needed Mode of Arrival: Wheelchair Information source: Patient Notes: HPI;39-year-old female presents to the emergency room complaining of a persistent headache for the past 4 days. States she is had off-and-on for the past year. Complains of dizziness and blurry vision. States she has been taking Tylenol and ibuprofen with minimal relief. Drove self to the ER. Describes it as a sharp stabbing pain to the left frontal lobe. Denies nausea but complains of photophobia. PE: Alert and oriented x3. Moderate distress noted. Lungs: Clear to auscultation without rales, rhonchi, wheezes. Heart: Regular rate and rhythm without murmurs, rubs, gallops. Positive photophobia bilaterally. I have greeted and performed a rapid initial assessment of this patient. A comprehensive ED assessment and evaluation of the patient, analysis of test results and completion of the medical decision making process will be conducted by additional ED providers. I have specifically instructed the patient or family members with the patient to immediately return to any nursing staff should anything change in the patient's condition or with their chief complaint. TRAVEL OUTSIDE OF THE [place] IN LAST 30 DAYS: No - Related Data Allergies/Adverse Reactions: acetaminophen [From Vicodin] Allergy (Severe, Verified 09/01/19 12:58) Hives hydrocodone [From Vicodin] Allergy (Severe, Verified 09/01/19 12:58) Hives tramadol Allergy (Verified 09/01/19 12:58) Hives Past Medical History - Past Medical History Cardiac Medical History: Denies: Hx Coronary Artery Disease, Hx Heart Attack, Hx Hypertension Pulmonary Medical History: Reports: Hx Asthma, Hx Bronchitis, Hx COPD Neurological Medical History: Denies: Hx Cerebrovascular Accident, Hx Seizures Renal/ Medical History: Denies: Hx Peritoneal Dialysis GI Medical History: Reports: Hx Colonoscopy, Hx Endoscopy. Denies: Hx Hepatitis, Hx Hiatal Hernia, Hx Ulcer Musculoskeltal Medical History: Reports Hx Musculoskeletal Trauma Psychiatric Medical History: Reports: Hx Anxiety, Hx Depression, Hx Post Traumatic Stress Disorder Infectious Medical History: Denies: Hx Hepatitis Past Surgical History: Reports: Hx Bowel Surgery, Hx Dilation and Curettage, Hx Gynecologic Surgery - ectopic L tube, Hx Tubal Ligation. Denies: Hx Hysterectomy, Hx Mastectomy, Hx Open Heart Surgery, Hx Pacemaker - Immunizations Immunizations up to date: No Hx Diphtheria, Pertussis, Tetanus Vaccination: Yes Physical Exam - Vital signs Vitals: Temp Pulse Resp BP Pulse Ox 99.4 F 81 20 148/91 H 99 01/07/20 19:41 01/07/20 19:41 01/07/20 19:41 01/07/20 19:41 01/07/20 19:41 Course - Vital Signs Vital signs: Temp Pulse Resp BP Pulse Ox 99.4 F 81 20 148/91 H 99 01/07/20 19:41 01/07/20 19:41 01/07/20 19:41 01/07/20 19:41 01/07/20 19:41 Doctor's Discharge - Discharge Referrals: SATYA HANSON DO [Primary Care Provider] - Follow up as needed
--- NOTE | 2020-01-07 20:31 | RADIOLOGY REPORT (SQ) ---
EXAM DESCRIPTION: CT head without contrast CLINICAL HISTORY: 39 years Female, headache COMPARISON: None. TECHNIQUE: Axial images of the head were performed without the use of intravenous contrast, with sagittal and coronal reformatted images. This exam was performed according to our departmental dose-optimization program which includes use of Automated Exposure Control, adjustment of the mA and/or kV according to patient size and/or use of iterative reconstruction technique. FINDINGS: No evidence of acute hemorrhage or infarct. No evidence of mass or hydrocephalus. [place]/white matter differentiation is preserved. The visualized paranasal sinuses are clear. IMPRESSION: Normal head CT.
[2020-01-07] MEDS ORDERED: METOCLOPRAMIDE HCL INJ/PF 10 MG/2 ML SDV IV ONE (20:55)
[2020-01-07] MEDS ORDERED: NORMAL SALINE 1000 ML 1,000 ML IV ONE (20:55)
[2020-01-07] MEDS ORDERED: KETOROLAC TROMETHAMINE INJ/PF 30 MG/1 ML SDV IV ONE (20:55)
--- NOTE | 2020-01-08 07:58 | EKG REPORT ---
SEVERITY:- BORDERLINE ECG - SINUS RHYTHM BORDERLINE T ABNORMALITIES, ANTERIOR LEADS : Confirmed by: Sharmaine Mcneil 08-Jan-2020 07:57:55
== END 2020-01-07 22:30 | disposition left against medical advice (07) ==
LOC: ER 19:24
DX: R50.9 Fever, unspecified (principal); H53.8 Other visual disturbances; R42 Dizziness and giddiness; Z88.6 Allergy status to analgesic agent
CPT/HCPCS: 36415; 70450; 80053; 84703; 93005; 93010; 99281

== ENCOUNTER 2020-02-05 09:25 | Emergency (ER) | payer MEDICAID ==
[2020-02-05 09:32] VITALS: BP 128/79
== END 2020-02-05 12:00 | disposition left against medical advice (07) ==
LOC: ER 09:25
DX: Z53.21 Procedure and treatment not carried out due to patient leaving prior to being seen by health care provider (principal)

== ENCOUNTER 2020-04-09 18:58 | Emergency (ER) | payer MEDICAID ==
--- NOTE | 2020-04-09 19:56 | ER Document Report ---
ED Medical Screen (RME) - General Chief Complaint: Skin Problem Stated Complaint: FACIAL PAIN Time Seen by Provider: 04/09/20 19:23 Primary Care Provider: SATYA HANSON DO [Primary Care Provider] - Follow up as needed TRAVEL OUTSIDE OF THE [place] IN LAST 30 DAYS: No - HPI Notes: 04/09/20 19:52 39-year-old female presents to the ED today for complaints of bilateral facial swelling, bilateral nostril swelling with a long history of facial swelling for the last 3 years. Patient states that she went to ear nose and throat and had nasal surgery done where they removed some questionable lesions from her nose this past winter/spring 2019. Patient states now she is having worsening pain over the last 3 months patient states that she is unable to go back to see Dr. Crystal REID because they discharged her as a patient for videoing a procedure being done. Patient states she has been on well over 20 antibiotics for diagnosis use of sinusitis. Per patient-consulted with infectious disease and they told her that due to her history of MRSA she would only be able to receive IV antibiotics. Denies any chest pain or shortness of breath. I have greeted and performed a rapid initial assessment of this patient. A comprehensive ED assessment and evaluation of the patient, analysis of test results and completion of the medical decision making process will be conducted by additional ED providers. PHYSICAL EXAMINATION: GENERAL: Well-appearing, well-nourished and in no acute distress. HEAD: Atraumatic, normocephalic. EYES: Pupils equal round extraocular movements intact, conjunctiva are normal. ENT: boggy turbinates. tenderness to right and left maxillary sinus on palpation. NECK: Normal range of motion CV: s1, s2 regular LUNGS: No respiratory distress - Related Data Allergies/Adverse Reactions: hydrocodone [From Vicodin] Allergy (Severe, Verified 02/05/20 09:32) Hives tramadol Allergy (Verified 02/05/20 09:32) Hives Past Medical History - Past Medical History Cardiac Medical History: Denies: Hx Coronary Artery Disease, Hx Heart Attack, Hx Hypertension Pulmonary Medical History: Reports: Hx Asthma, Hx Bronchitis, Hx COPD Neurological Medical History: Denies: Hx Cerebrovascular Accident, Hx Seizures Renal/ Medical History: Denies: Hx Peritoneal Dialysis GI Medical History: Reports: Hx Colonoscopy, Hx Endoscopy. Denies: Hx Hepatitis, Hx Hiatal Hernia, Hx Ulcer Musculoskeltal Medical History: Reports Hx Musculoskeletal Trauma Psychiatric Medical History: Reports: Hx Anxiety, Hx Depression, Hx Post Traumatic Stress Disorder Infectious Medical History: Denies: Hx Hepatitis Past Surgical History: Reports: Hx Bowel Surgery, Hx Dilation and Curettage, Hx Gynecologic Surgery - ectopic L tube, Hx Tubal Ligation. Denies: Hx Hysterectomy, Hx Mastectomy, Hx Open Heart Surgery, Hx Pacemaker - Immunizations Immunizations up to date: No Hx Diphtheria, Pertussis, Tetanus Vaccination: Yes Physical Exam - Vital signs Vitals: Temp Pulse Resp BP Pulse Ox 98.3 F 79 16 133/91 H 96 04/09/20 19:05 04/09/20 19:05 04/09/20 19:05 04/09/20 19:05 04/09/20 19:05 Course - Vital Signs Vital signs: Temp Pulse Resp BP Pulse Ox 98.3 F 79 16 133/91 H 96 04/09/20 19:05 04/09/20 19:05 04/09/20 19:05 04/09/20 19:05 04/09/20 19:05 Doctor's Discharge - Discharge Referrals: SATYA HANSON DO [Primary Care Provider] - Follow up as needed
[2020-04-09 20:56] LABS: HEMATOCRIT 35.8 % (36.0-47.0); HEMOGLOBIN 11.8 g/dL (12.0-15.5); MEAN CORPUSCULAR HEMOGLOBIN 27.6 pg (27.0-33.4); MEAN CORPUSCULAR HGB CONC 32.9 g/dL (32.0-36.0); MEAN CORPUSCULAR VOLUME 84 fl (80-97); PLATELET COUNT 334 10^3/uL (150-450); RED BLOOD COUNT 4.27 10^6/uL (3.72-5.28); RED CELL DISTRIBUTION WIDTH 18.1 % (11.5-14.0); WHITE BLOOD COUNT 9.9 10^3/uL (4.0-10.5)
--- NOTE | 2020-04-09 21:03 | RADIOLOGY REPORT (SQ) ---
EXAM DESCRIPTION: Site: RP: CT MAXILLOFACIAL WITHOUT IV CONTRAST CLINICAL HISTORY: 39 years Female; Bilateral sinus pain, hx of lesions in sinus; TECHNIQUE: High resolution axial CT of the face without contrast, with sagittal and coronal reformatted images. All CT scans at this facility use dose modulation, iterative reconstruction, and/or weight based dosing when appropriate to reduce radiation dose to as low as reasonably achievable. COMPARISON: CT head 01/07/2020 FINDINGS: Facial bones are intact. Mandible is intact. Paranasal sinuses and mastoids are clear. No retro-orbital hematoma. Cutaneous foreign body is noted in the midline frontal scalp, as on previous head CT. IMPRESSION: 1. No acute findings 2. Paranasal sinuses are clear.
[2020-04-09 21:13] LABS: ABSOLUTE LYMPHOCYTES# (MANUAL) 3.4 10^3/uL (0.5-4.7); ABSOLUTE MONOCYTES # (MANUAL) 0.4 10^3/uL (0.1-1.4); BAND NEUTROPHILS % (MANUAL) 1 % (3-5); BASOPHILS % (MANUAL) 0 % (0-2); EOSINOPHILS % (MANUAL) 2 % (0-6); LYMPHOCYTES % (MANUAL) 30 % (13-45); MONOCYTES % (MANUAL) 4 % (3-13); SEGMENTED NEUTROPHILS % (MAN) 59 % (42-78); TOTAL CELLS COUNTED 100
[2020-04-09 21:15] LABS: ANION GAP 8 (5-19); ANISOCYTOSIS 1+; BLOOD UREA NITROGEN 10 mg/dL (7-20); CALCIUM 9.3 mg/dL (8.4-10.2); CARBON DIOXIDE 21 mmol/L (22-30); CHLORIDE 107 mmol/L (98-107); GLUCOSE 101 mg/dL (75-110); OVALOCYTES SLIGHT; PLATELET COMMENT ADEQUATE; POIKILOCYTOSIS SLIGHT; POLYCHROMASIA SLIGHT; POTASSIUM 4.1 mmol/L (3.6-5.0); TARGET CELLS SLIGHT
[2020-04-09] MEDS ORDERED: OXYCODONE-ACETAMINOPHEN 5-325 MG TABLET PO ONE (21:50)
--- NOTE | 2020-04-09 21:55 | ER Document Report ---
ED General - General Chief Complaint: Skin Problem Stated Complaint: FACIAL PAIN Time Seen by Provider: 04/09/20 19:23 Primary Care Provider: SATYA HANSON DO [Primary Care Provider] - Follow up as needed Mode of Arrival: Ambulatory Information source: Patient Notes: Patient is a 39-year-old -[place] female coming in today with left-sided facial pain. She has had facial pain on the left side for 3 months. She was seeing Dr. Rojas who did surgery on her, but she was dismissed from the practice after her son took a video of a procedure being performed. She has not been able to follow-up with any other people for this. Her primary care told her that she was needing footwear stitcher. TRAVEL OUTSIDE OF THE [place] IN LAST 30 DAYS: No - Related Data Allergies/Adverse Reactions: hydrocodone [From Vicodin] Allergy (Severe, Verified 02/05/20 09:32) Hives tramadol Allergy (Verified 02/05/20 09:32) Hives Past Medical History - Social History Smoking Status: Unknown if Ever Smoked Family History: Reviewed & Not Pertinent - Past Medical History Cardiac Medical History: Denies: Hx Coronary Artery Disease, Hx Heart Attack, Hx Hypertension Pulmonary Medical History: Reports: Hx Asthma, Hx Bronchitis, Hx COPD Neurological Medical History: Denies: Hx Cerebrovascular Accident, Hx Seizures Renal/ Medical History: Denies: Hx Peritoneal Dialysis GI Medical History: Reports: Hx Colonoscopy, Hx Endoscopy. Denies: Hx Hepatitis, Hx Hiatal Hernia, Hx Ulcer Musculoskeletal Medical History: Reports Hx Musculoskeletal Trauma Psychiatric Medical History: Reports: Hx Anxiety, Hx Depression, Hx Post Traumatic Stress Disorder Infectious Medical History: Denies: Hx Hepatitis Past Surgical History: Reports: Hx Bowel Surgery, Hx Dilation and Curettage, Hx Gynecologic Surgery - ectopic L tube, Hx Tubal Ligation. Denies: Hx Hysterectomy, Hx Mastectomy, Hx Open Heart Surgery, Hx Pacemaker - Immunizations Immunizations up to date: No Hx Diphtheria, Pertussis, Tetanus Vaccination: Yes Hx Pneumococcal Vaccination: 06/21/12 Review of Systems - Review of Systems Notes: Constitutional: No fevers. No chills. EENT: No eye redness. No eye pain. No ear pain. No sore throat. + left facial pain Cardiovascular: No chest pain. No palpitations. Respiratory: No cough. No shortness of breath. No respiratory distress. Gastrointestinal: No abdominal pain. No nausea, vomiting, or diarrhea. Genitourinary: Atraumatic. No lesions. No pain. No discharge. Musculoskeletal: Atraumatic. No swelling. No deformities. Skin: No rash or lesions. Lymphatic: No swollen lymph nodes. Neurologic: No headache. No syncope. Psychiatric: No suicidal or homicidal ideation. Physical Exam - Vital signs Vitals: Temp Pulse Resp BP Pulse Ox 98.3 F 79 16 133/91 H 96 04/09/20 19:05 04/09/20 19:05 04/09/20 19:05 04/09/20 19:05 04/09/20 19:05 - Notes Notes: General: Well-developed, well-nourished. In no acute distress. Non-toxic appearing. Cardiac: Well-perfused. Regular rate and rhythm. No murmurs, rubs, or gallops. Pulmonary: No respiratory distress. No cyanosis. Bilateral lung fiels are clear to auscultation. Abdominal: Non-distended. Non-rigid. Bowels sounds are present in all four quadrants. No guarding or rebound. HEENT: Head is atraumatic. Conjunctivae not reddened. No tearing. PERRL. EOMI. Orbits atraumatic. No periorbital swelling or erythema. Oropharynx is without erythema, swelling, or exudates. Left maxillary tenderness Neck: Supple. No adenopathy. No meningismus. Dermatologic: Warm with good turgor. No rash. Atraumatic. Chest: Atraumatic. No chest wall tenderness to palpation. Musculoskeletal: Moves all extremities well. No range of motion deficits. no muscular or joint tenderness. No paraspinal muscle tenderness. no midline spinal tenderness or step-off. Genitourinary: Examination deferred Neurologic: No gross neurologic deficits. Psychiatric: Normal mood. Course - Re-evaluation Re-evalutation: 04/09/20 21:52 Patient has normal labs. She has a normal CT scan. No evidence of sinusitis on the CT scan. She has no fevers. Clinically she is tender over the left maxillary sinus but does not have findings consistent with sinusitis. It sounds as though she has tried all of the typical treatments including numerous antibiotics, steroids, anti-inflammatories. She is complaining that the Percocet required 2 at a time to help improve her symptoms, but she has a side effect of dizziness. She wondered if there was something stronger that she would not have to take so often. I told her that there was nothing above Percocet in terms of strength that she would be getting from this emergency department. She was offered an IM shot of Toradol, dexamethasone which she declined. Ultimately she did tell me that she be willing to try a different ant i-inflammatory to see if that would help with her symptoms. I encouraged her to reach out to Dr. Rojas's office to see if they would let her back into the practice. If not, hopefully they would be willing to give her a referral to another specialist in the area. - Vital Signs Vital signs: Temp Pulse Resp BP Pulse Ox 98.3 F 79 16 133/91 H 96 04/09/20 19:05 04/09/20 19:05 04/09/20 19:05 04/09/20 19:05 04/09/20 19:05 - Laboratory Result Diagrams: 04/09/20 20:45 04/09/20 20:45 Laboratory results interpreted by me: 04/09/20 04/09/20 20:45 20:45 Hgb 11.8 L Hct 35.8 L RDW 18.1 H Band Neutrophils % 1 L Sodium 135.8 L Carbon Dioxide 21 L - Diagnostic Test Radiology reviewed: Reports reviewed Discharge - Discharge Clinical Impression: Facial pain, Elevated blood pressure reading Condition: Good Disposition: HOME, SELF-CARE Additional Instructions: Please take the prescribed medication as directed. Please contact to see if they would let you back into the practice or to see if they would refer you to another footwear stitcher in the area. You may safely take 1-1/2 tablets of Percocet no more often than every 4 hours as needed for severe pain only. Recommend that you take the anti-inflammatory as directed and as needed only. Prescriptions: Indomethacin [Indocin 50 Mg Capsule] 50 mg PO Q8HP PRN #15 capsule PRN Reason: Forms: Elevated Blood Pressure Referrals: SATYA HANSON DO [Primary Care Provider] - Follow up as needed
[2020-04-09 22:33] VITALS: BP 174/96
== END 2020-04-09 22:05 | disposition home or self-care (01) ==
LOC: ER 18:58
DX: R51.9 Headache, unspecified (principal); R03.0 Elevated blood-pressure reading, without diagnosis of hypertension; Z88.8 Allergy status to other drugs, medicaments and biological substances; J44.9 Chronic obstructive pulmonary disease, unspecified
CPT/HCPCS: 36415; 70486; 80048; 85025; 99284

== ENCOUNTER → 2020-05-08 | Outpatient (CLI) | payer MEDICAID ==
--- NOTE | 2020-05-09 12:34 | RADIOLOGY REPORT (SQ) ---
EXAM DESCRIPTION: ELBOW LEFT >2 VIEWS IMAGES COMPLETED DATE/TIME: 05/08/2020 11:44 am REASON FOR STUDY: UNSPECIFIED INJURY OF LEFT ELBOW, INITIAL ENCOUNTER S59.902A UNSPECIFIED INJURY O F LEFT ELBOW, INITIAL ENCOUNTER COMPARISON: None. NUMBER OF VIEWS: Four views. TECHNIQUE: AP, lateral, and both oblique radiographic images acquired of the left elbow. LIMITATIONS: None. FINDINGS: MINERALIZATION: Normal. BONES: No acute fracture or dislocation. No worrisome bone lesions. JOINT: No effusion. SOFT TISSUES: No soft tissue swelling. No foreign body. OTHER: No other significant finding. IMPRESSION: NEGATIVE STUDY OF THE LEFT ELBOW. NO RADIOGRAPHIC EVIDENCE OF ACUTE INJURY. TECHNICAL DOCUMENTATION: JOB ID: [id number] 2010 [employer]- All Rights Reserved Reading location - IP/workstation name: [email or web address]
== END ==
LOC: OD 11:22
PROVIDERS: ATTEND Family Medicine
DX: S59.902A Unspecified injury of left elbow, initial encounter (principal); X58.XXXA Exposure to other specified factors, initial encounter

== ENCOUNTER 2020-05-28 14:11 | Emergency (ER) | payer MEDICAID | END 2020-05-28 14:40 | disposition left against medical advice (07) | LOC: ER 14:11 | DX: Z53.21 Procedure and treatment not carried out due to patient leaving prior to being seen by health care provider (principal) ==